=== PATIENT | male | born 1980 | race Caucasian/White ===

== ENCOUNTER 2019-03-21 15:03 | Inpatient (IN) ==
[2019-03-21] MEDS ORDERED: ONDANSETRON INJ 2 MG/ML 2 ML VIAL IV STA (15:11)
[2019-03-21] MEDS ORDERED: KETOROLAC TROMETHAMINE 15 MG/ML VIAL IV STA (15:11)
[2019-03-21] MEDS: SODIUM CHLORIDE 0.9% 1000ML 1,000 ML IV SCH ×2 (15:34→19:35)
[2019-03-21] MEDS ORDERED: DiphenhydrAMINE HCL 50 MG/ML VIAL IV STA (16:01)
[2019-03-21] MEDS ORDERED: METOCLOPRAMIDE HCL INJ 5 MG/ML 2 ML VIAL IV ONE (16:01)
[2019-03-21 16:03] LABS: Alanine Aminotransferase 54 U/L (12-78); Albumin Level 4.7 gm/dl (3.4-5.0); Aspartate Aminotransferase 23 U/L (15-37); Bilirubin Direct 0.1 mg/dl (0-0.2); Blood Urea Nitrogen 18 mg/dl (7-18); Calcium 10.4 mg/dl (8.5-10.1); Carbon Dioxide 32 mmol/L (21-32); Chloride 91 mmol/L (98-107); Est GFR (African American) 74.5; Est GFR (Non-African American) 64.3; Glucose 211 mg/dl (70-99); Potassium 3.8 mmol/L (3.5-5.1); Sodium 135 mmol/L (136-145)
[2019-03-21 16:06] LABS: Alkaline Phosphatase 112 U/L (45-117); Bilirubin,Total 0.5 mg/dl (0.2-1); Total Protein 9.4 gm/dl (6.4-8.2)
[2019-03-21 16:14] LABS: Basophils # (auto) 0.01 K/uL (0-0.2); Immature Granulocytes # (auto) 0.08 K/uL (0.00-0.02); Immature Granulocytes % (auto) 0.4 %; Lymphocytes # (auto) 1.22 K/uL (1.2-3.4); Lymphocytes % (auto) 5.5 %; Mean Corpuscular Hgb Conc 35.4 g/dL (32-36); Mean Corpuscular Volume 87.9 fL (80-100); Mean Platelet Volume 11.9 fL (7.4-10.4); Monocytes # (auto) 0.65 K/uL (0.11-0.59); Monocytes % (auto) 2.9 %; Neutrophils # (auto) 20.39 K/uL (1.4-6.5); Neutrophils % (auto) 91.2 %; Platelet Count 314 K/uL (130-400); RDW Coefficient of Variation 12.7 % (11.5-14.5); RDW Standard Deviation 39.9 fL (36.4-46.3); Red Blood Count 5.46 M/uL (4.7-6.1); White Blood Count 22.35 K/uL (4.8-10.8)
[2019-03-21] MEDS ORDERED: MoRPHine SULFATE 4 MG/ML 1 ML CARP\\VIAL IV STA ×2 (16:15→18:32)
--- NOTE | 2019-03-21 17:09 | CT Scan Report ---
CT SCAN OF THE ABDOMEN AND PELVIS WITHOUT CONTRAST CLINICAL HISTORY: Abdominal pain and vomiting COMPARISON STUDY: 03/20/2019 TECHNIQUE: CT scan of the abdomen and pelvis was performed from the lung bases to the proximal femurs . Images are reviewed in the axial, sagittal, and coronal planes. An attempt was made to perform the study the contrast-enhanced fashion. Approximately 88 cc of Optiray 320 infiltration into the patient 's right antecubital fossa. The attending physician was notified. As the patient has limited IV acces s, it was decided to proceed with these examination without intravenous contrast. A dose lowering te chnique was utilized adhering to the principles of ALARA. CT DOSE: 306.82 mGy.cm FINDINGS: Lower chest: There are right basilar atelectatic changes. Liver: No focal masses are identified in this noncontrast study Gallbladder: There is vicarious excretion of contrast. Spleen: Normal in size and attenuation. Pancreas: Unremarkable. Adrenal glands: Unremarkable. Kidneys: No renal masses are visualized. There is a small amount of contrast enhancement. Bowel: There are progressively dilated small bowel loops with multiple air-fluid levels. The left col on is decompressed. The stomach is distended with large air-fluid level. The cecum appears to be posi tioned within the midline. The findings are concerning for a small bowel obstruction possibly in the basis of a cecal volvulus/bascule Peritoneum: There is a small amount of free pelvic fluid. No free intraperitoneal air is visualized. Vasculature: The abdominal aorta is normal in course and caliber. Adenopathy: None. Pelvic viscera: The bladder, and pelvic viscera are unremarkable. Skeletal structures: No destructive osseous lesions are seen. IMPRESSION: 1. Progressively dilated small bowel loops with multiple air-fluid levels. The transverse and left co anatoly are decompressed. The cecum appears to be positioned within the midline. The findings are consist ent with a small bowel obstruction, possibly on the basis of a cecal volvulus/bascule Electronically signed by: Quentin Albright M.D. 03/21/2019 5:08 PM
[2019-03-21] MEDS ORDERED: SODIUM CHLORIDE 0.9% 1000ML 1,000 ML IV ONE (17:37)
[2019-03-21] MEDS ORDERED: PIPERACILLIN/TAZOBACTAM 4.5 GM/120 ML BAG IV ONE (17:45)
--- NOTE | 2019-03-21 18:12 | Surgery Consultation ---
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 His lactate and WBC are elevated, and the patient's abdomen is difficult to examine. CT scan shows some worsening small bowel dilation. Overall I do not feel that he has an acute abdomen. No emergent surgical intervention indicated at this time Recommend NG tube, IV fluids, admit to medicine Repeat WBC and lactate to trend KUB in the morning Surgery will continue to follow, may need right hemicolectomy during his hospital stay (2) SBO (small bowel obstruction): (3) Heroin abuse: History of Present Illness History of Present Illness 38-year-old male IV drug abuser presents to the emergency department with continued abdominal pain and nausea and vomiting. He presented to the emergency department last night with the symptoms have been going on for about a week. He does endorse a history of chronic constipation due to narcotic use. Yesterday he used heroin prior to coming into the emergency department. He had a CT scan that showed a possible bascule of the cecum. He appeared to be going through withdrawal symptoms and stated his symptoms were improving and left the hospital. He did use heroin again today. He then presented with continued symptoms. He does use multiple enemas and does have a small amount of stool. He vomited multiple times today. He has never had symptoms like this before. Allergies Allergy/AdvReac Type Severity Reaction Status Date / Time No Known Allergies Allergy Verified 03/21/19 16:23 Home Medications Home Medications Medication Instructions Recorded Confirmed Type No Known Home Medications 03/20/19 03/21/19 History Patient History Medical History Depression (Chronic) Cellulitis Heroin use MRSA infection No significant family history No significant past surgical history Social History Preferred Language: Kinyarwanda Feels Safe at Home: Yes Smoking Status: Current every day smoker Review of Systems Review of Systems: All systems reviewed & are unremarkable except as noted in HPI & below Physical Exam Constitutional: + acute distress (Mostly due to withdrawal symptoms, patient is rocking back and forth on the side of the bed) and + cachectic; + not well nourished Eyes: PERRL, conjunctivae normal, anicteric sclerae ENMT: external ear and nose normal, oropharynx normal Neck: trachea midline, no thyromegaly Respiratory: normal respiratory effort, lungs clear to auscultation Cardiovascular: RRR, no murmur, no edema Gastrointestinal (Abdomen): Difficult to examine. Does not appear to have any peritonitis, but would not lay supine for the exam. Musculoskeletal: no cyanosis or clubbing, extremities motor strength 5/5 Skin: no rashes, warm and dry Multiple injection sites on skin Neurologic: PERRL, EOMI, accommodation nl, no face palsy, no dysarthria Psychiatric: A+Ox3, euthymic affect Affect: + anxious affect Lymphatic: no cervical or axillary lymphadenopathy Results & Data Vital Signs (Past 12 Hours) Vital Signs Temp Pulse Pulse Resp BP Pulse Ox 03/21/19 17:02 75 18 155/100 H 98 03/21/19 15:04 36.6 C 107 H 22 98 Laboratory Results Laboratory Results - last 24 hr 03/21/19 03/21/19 03/21/19 15:27 15:27 15:27 WBC 22.35 H RBC 5.46 Hgb 17.0 Hct 48.0 MCV 87.9 MCH 31.1 MCHC 35.4 RDW Std Deviation 39.9 RDW Coeff of Lara 12.7 Plt Count 314 MPV 11.9 H Immature Gran % (Auto) 0.4 Neut % (Auto) 91.2 Lymph % (Auto) 5.5 [place] % (Auto) 2.9 Eos % (Auto) 0.0 Baso % (Auto) 0.0 Immature Gran # (Auto) 0.08 H Neut # (Auto) 20.39 H Lymph # (Auto) 1.22 [place] # (Auto) 0.65 H Eos # (Auto) 0.00 Baso # (Auto) 0.01 Sodium 135 L Potassium 3.8 Chloride 91 L Carbon Dioxide 32 Anion Gap 12.0 H BUN 18 Creatinine 1.39 D Est Cr Clr Drug Dosing Not Reportable Est GFR ( Amer) 74.5 Est GFR (Non-Af Amer) 64.3 BUN/Creatinine Ratio 13.0 Glucose 211 H Lactate 4.9 H* Calcium 10.4 H Magnesium Total Bilirubin 0.5 Direct Bilirubin 0.1 AST 23 ALT 54 Alkaline Phosphatase 112 Total Protein 9.4 H Albumin 4.7 Lipase 129 03/21/19 15:27 WBC RBC Hgb Hct MCV MCH MCHC RDW Std Deviation RDW Coeff of Lara Plt Count MPV Immature Gran % (Auto) Neut % (Auto) Lymph % (Auto) [place] % (Auto) Eos % (Auto) Baso % (Auto) Immature Gran # (Auto) Neut # (Auto) Lymph # (Auto) [place] # (Auto) Eos # (Auto) Baso # (Auto) Sodium Potassium Chloride Carbon Dioxide Anion Gap BUN Creatinine Est Cr Clr Drug Dosing Est GFR ( Amer) Est GFR (Non-Af Amer) BUN/Creatinine Ratio Glucose Lactate Calcium Magnesium 2.5 H Total Bilirubin Direct Bilirubin AST ALT Alkaline Phosphatase Total Protein Albumin Lipase Diagnostic Findings CT SCAN OF THE ABDOMEN AND PELVIS WITHOUT CONTRAST CLINICAL HISTORY: Abdominal pain and vomiting COMPARISON STUDY: 03/20/2019 TECHNIQUE: CT scan of the abdomen and pelvis was performed from the lung bases to the proximal femurs. Images are reviewed in the axial, sagittal, and coronal planes. An attempt was made to perform the study the contrast-enhanced fashion. Approximately 88 cc of Optiray 320 infiltration into the patient's right antecubital fossa. The attending physician was notified. As the patient has limited IV access, it was decided to proceed with these examination without intravenous contrast. A dose lowering technique was utilized adhering to the principles of ALARA. CT DOSE: 306.82 mGy.cm FINDINGS: Lower chest: There are right basilar atelectatic changes. Liver: No focal masses are identified in this noncontrast study Gallbladder: There is vicarious excretion of contrast. Spleen: Normal in size and attenuation. Pancreas: Unremarkable. Adrenal glands: Unremarkable. Kidneys: No renal masses are visualized. There is a small amount of contrast enhancement. Bowel: There are progressively dilated small bowel loops with multiple air-fluid levels. The left colon is decompressed. The stomach is distended with large air- fluid level. The cecum appears to be positioned within the midline. The findings are concerning for a small bowel obstruction possibly in the basis of a cecal volvulus/bascule Peritoneum: There is a small amount of free pelvic fluid. No free intraperitoneal air is visualized. Vasculature: The abdominal aorta is normal in course and caliber. Adenopathy: None. Pelvic viscera: The bladder, and pelvic viscera are unremarkable. Skeletal structures: No destructive osseous lesions are seen. IMPRESSION: 1. Progressively dilated small bowel loops with multiple air-fluid levels. The transverse and left colon are decompressed. The cecum appears to be positioned within the midline. The findings are consistent with a small bowel obstruction, possibly on the basis of a cecal volvulus/bascule
--- NOTE | 2019-03-21 18:22 | History & Physical Report ---
Date of Service March 21, 2019 Assessment & Plan (1) Cecal bascule: (2) SBO (small bowel obstruction): This is a 38 yo M with PMH heroin abuse and depression who presents with progressive diffuse abdominal pain that began 1 week ago and was found to have small bowel obstruction and possible cecal volvulus/bascule. -Worsening abdominal pain x 1 week -CT abd/pelvis with progressively dilated small bowel loops with multiple air- fluid levels. The transverse and left colon are decompressed. The cecum appears to be positioned within the midline. The findings are consistent with a small bowel obstruction, possibly on the basis of a cecal volvulus/bascule -Evaluated by Dr. Sawant of general surgery. Does not feel this is an acute abdomen and no emergent surgical intervention is needed at this time -Will conservatively manage with NG tube, IV fluids, pain control, trend WBC and lactate -Surgery to follow -Keeping NPO (3) Heroin abuse: Last used this morning -Clonidine PRN, Ativan PRN DVT Ppx: Tristen talbert, ambulation Code status: FULL PCP: Unassigned Dispo: Admitted to PCU. Plan to return home once medically stable. Patient seen in collaboration with Dr. [place]. Please see addendum. History of Present Illness Chief Complaint: RLQ abdominal pain Primary Care Provider: NO PCP This is a 38 yo M with PMH heroin abuse and depression who presents with progressive diffuse abdominal pain that began 1 week ago. States that he has not had a normal bowel movement in about a week but has passed small amounts of stool. Has history of constipation in setting of heroin use. Was evaluated yesterday in the ED for RLQ pain and had CT abd/pelvis that showed distended cecum located in left upper quadrant due to possible mobile cecal syndrome or cecal bascule/volvulus. No evidence of appendicitis. Patient had no correlating pain in that area and was discharged home. Returns this afternoon with more diffuse abdominal pain, nausea and multiple bouts of emesis. Last used heroin this morning. Did not have a bowel movement despite taking 4 laxatives prior to arrival. Patient states that he feels antsy and is starting to withdrawal. Denies fever, chills, headache, lightheadedness, chest pain, palpitations, shortness of breath, dysuria or diarrhea. In ED, patient is hypertensive at 155/100. Leukocytosis of 22.35k. Lactate elevated at 4.9. CT abd/pelvis today with progressively dilated small bowel loops with multiple air-fluid levels. The transverse and left colon are decompressed. The cecum appears to be positioned within the midline. The findings are consistent with a small bowel obstruction, possibly on the basis of a cecal volvulus/bascule. Was evaluated by surgical service in ED. Dr. Sawant does not feel this is an acute abdomen and no emergent surgical intervention is needed at this time. Will conservatively manage with NG tube, IV fluids, trend WBC and lactate. 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 Physical Exam Physical Exam: General Appearance: WD/WN, thin male in acute distress moving around in bed, rocking back and forth Head: normocephalic, atraumatic Eyes: normal inspection, constricted pupils, EOMI ENT: hearing grossly normal, pharynx normal (dry mucous membranes) Neck: supple, no JVD, no adenopathy Respiratory/Chest: lungs clear to auscultation. No wheezes, rales or rhonci. No respiratory distress or accessory muscle use Cardiovascular: regular rate, rhythm, no murmur, normal peripheral pulses Abdomen/GI: difficult to examine due to patient moving around. Mildly distended, diffusely tender to palpation, no guarding Extremities/Musculoskelatal: normal inspection, no calf tenderness, normal capillary refill, no pedal edema Neurologic/Psych: alert, anxious mood, oriented x 3 Skin: normal color, warm/dry Results & Data Vital Signs (Past 12 Hours) Vital Signs Temp Pulse Pulse Resp BP Pulse Ox 03/21/19 17:02 75 18 155/100 H 98 03/21/19 15:04 36.6 C 107 H 22 98 Laboratory Results Short CBC 03/21/19 Range/Units 15:27 WBC 22.35 H (4.8-10.8) K/uL Hgb 17.0 (14.0-18.0) g/dL Hct 48.0 (42-52) % Plt Count 314 (130-400) K/uL BMP 03/21/19 15:27 Sodium 135 L Potassium 3.8 Chloride 91 L Carbon Dioxide 32 BUN 18 Creatinine 1.39 D Glucose 211 H Calcium 10.4 H Lactate 4.9 H Liver Function 03/21/19 Range/Units 15:27 Total Bilirubin 0.5 (0.2-1) mg/dl Direct Bilirubin 0.1 (0-0.2) mg/dl AST 23 (15-37) U/L ALT 54 (12-78) U/L Alkaline Phosphatase 112 (45-117) U/L Albumin 4.7 (3.4-5.0) gm/dl Diagnostic Findings CT abd/pelvis: IMPRESSION: 1. Progressively dilated small bowel loops with multiple air-fluid levels. The transverse and left colon are decompressed. The cecum appears to be positioned within the midline. The findings are consistent with a small bowel obstruction, possibly on the basis of a cecal volvulus/bascule Supervising Physician Co-Signing Physician Notes I saw this patient with the physician assistant mechanic, I participated in the history, physical, review of systems, and physical exam. I reviewed the medications with the patient and the physician assistant mechanic and helped reconcile the medications. I helped take a detailed family and social history as well. I formulated the assessment and plan personally with the physician assistant mechanic and went over it with the patient. ROS-No Headache, No Visual Changes, No Nausea, No Vomiting, + Fever, + Chills, No Neck Pain or Stiffness, No Chest Pain, No Palpitations, No SOB, No CHI, No Cough, No Sputum, No Wheezing, + Abdominal Pain, No Diarrhea, No Hematemesis, No Hemoptysis, No Unexpected Weight Loss, No Flank pain, No Melena, No Hematochezia, No Frequency, No Urgency, No Burning, No Hematuria, No Rashes, No Diaphoresis. Appetite is Normal Physical Exam Gen-AAO x 3, NAD, Afebrile, anxious, diaphoretic Head-NCAT, EOMI, PERRLA, Anicteric Sclera, No Posterior Pharyngeal Erythema Neck-Supple, No JVD, No Thyromegaly, No Masses, No LAD, No Bruits Lungs-Clear to Auscultation Bilaterally, No Rales, No Rhonchi, No Wheezing, No Crepitus Chest-No S4, +S1, +S2, No S3, No Murmurs, No Rubs, No Gallops, No Ectopy Abdomen-Soft, Bowel Sounds Present, Tender, Non Distended, No Hepatomegaly, No Splenomegaly, No Palpable Masses, No Rebound, No Rigidity, + Guarding Musculoskeletal-Full Range of Motion Bilaterally, No CVAT Extremities-No Cyanosis, No Clubbing, No Edema Nuero-Cranial Nerves II-XII grossly intact, Motor WNL, DTRs WNL, Strength WNL, Non Focal Psych-Normal Mood
[2019-03-21] MEDS ORDERED: MoRPHine SULFATE 4 MG/ML 1 ML CARP\\VIAL IV PRN (19:28)
[2019-03-21] MEDS ORDERED: CONSULT PHARMACY STA (19:28)
[2019-03-21] MEDS ORDERED: ONDANSETRON INJ 2 MG/ML 2 ML VIAL IV PRN (19:28)
[2019-03-21] MEDS ORDERED: LORazepam 0.5 MG/1 ML VIAL IV PRN (19:28)
[2019-03-21] MEDS ORDERED: PIPERACILL/TAZOBAC CONSULT ACTIVE PRN (19:42)
[2019-03-21] MEDS ORDERED: PATIENT'S HEIGHT AND/OR WEIGHT NEEDED SCH (19:45)
[2019-03-21] MEDS ORDERED: HYDROmorphone INJ 1 MG/ML SYRINGE IV PRN (19:55)
[2019-03-21] MEDS: LORazepam 2 MG/4 ML VIAL IV PRN (20:06)
--- NOTE | 2019-03-21 20:31 | Emergency Department Note ---
Entered by Yuli Diaz acting as a scribe for History of Present Illness General Chief complaint: Vomiting Stated complaint: VOMITTING Time Seen by Provider: 03/21/19 15:08 Source: patient Limitations: no limitations History of Present Illness Provider complaint: Vomiting Onset (ago): hour(s) Location: mouth Maximum Pain Intensity: 10 Relieved By: + none Associated symptoms: + denies other symptoms (-blood in vomit, -black tarry vomit ), + nausea/vomiting and + other (+constipation ) Treatments prior to arrival: other (+4 edemas ) The patient is a 38 year old male who presents to the Emergency Room with complaints of vomiting that began earlier in the morning prior to arrival. The patient states that he had at least 40 episodes prior to arrival. The patient states that his vomit is a light green color. The patient denies any of his vomit being dark/tarry or containing blood. The patient states that he has taken 4 edemas since he was discharged from the ED the night prior to arrival but states that he has not been able to have a bowel movement and is still constipated. The patient states that only blood came out of his rectum. Home Medications Home Medications Medication Instructions Recorded Confirmed Type No Known Home Medications 03/20/19 03/21/19 History Allergies Allergy/AdvReac Type Severity Reaction Status Date / Time No Known Allergies Allergy Verified 03/21/19 16:23 Past Med/Surg History Medical History Heroin abuse (Chronic) Depression (Chronic) MRSA infection (Resolved) Surgical History No significant past surgical history (Chronic) Family History Other No pertinent family history Social History Preferred Language: Kinyarwanda Communication Ability: Effective Table Assembler Required: No Beliefs That Will Affect Care: None Current Living Situation: Alone Feels Safe at Home: Yes Safety Concerns: Feels Safe At This Time Smoking Status: Current every day smoker Tobacco Type: cigarettes Cigarettes Per Day: 20 Hx Alcohol Use: No Hx Substance Use: Yes substance use type: heroin Last Used Substance: Days (ago) Last Used Substance Other:: 03/22/19 Review of Systems See HPI for pertinent positives & negatives. and A total of 10 systems reviewed and were otherwise negative Physical Exam Vital Signs Vital Signs - 24 hr 03/21/19 15:04 07/24/19 17:02 Temperature 36.6 C Temperature Source Oral Sepsis Recent Fever Within 48 Hours No Sepsis New/Unexplained Change in Mental Status No Sepsis Action Taken by Nursing No Action Required Pulse Rate 107 H Pulse Rate [Apical] 75 Pulse Rhythm Regular Pulse Strength Normal Respiratory Rate 22 18 Respiratory Effort / Characteristics Non-Labored Spontaneous Respiratory Depth Normal Respiratory Pattern Regular Blood Pressure [Left Arm] 155/100 H Blood Pressure Mean [Left Arm] 118 Blood Pressure Position Sitting Pulse Oximetry 98 98 Oxygen Delivery Method Room Air Physical Exam GENERAL: He is oriented to person, place, and time. He appears well-developed and well-nourished. He does not appear distressed. HENT: Exam performed. - Head: Normocephalic and atraumatic. - Right Ear: External ear normal. No mastoid tenderness. - Left Ear: External ear normal. No mastoid tenderness. - Mouth/Throat: The oropharynx is clear and moist. No trismus in the jaw. No dental abscesses or uvula swelling. No oropharyngeal exudate or tonsillar abscesses. EYES: Conjunctivae and EOM are normal. Pupils are equal, round, and reactive to light. Right eye exhibits no discharge. Left eye exhibits no discharge. No scleral icterus. NECK: Normal range of motion. Neck supple. No JVD present. No spinous process tenderness present. No carotid bruit present. No rigidity. No tracheal deviation and normal range of motion present. No Brudzinski's sign and no Kernig's sign noted. CV: Normal rate, regular rhythm, normal heart sounds and intact distal pulses. There is no peripheral edema. Palpable radial pulses bue. PULM/CHEST: Effort normal and breath sounds normal. No respiratory distress. No stridor. He has no wheezes. He has no rales. - Chest Wall: He exhibits no tenderness. ABD: The abdomen is soft. Bowel sounds are normal. He has no distension. No mass is present. There is abdominal tenderness with palpitation. There is no rebound, no guarding, no Askew's sign and no tenderness at McBurney's point. Rovsig negative. MUSC/SKEL: Normal range of motion. There is no peripheral edema, tenderness or deformity. LYMPH: No cervical adenopathy. NEURO: He is alert and oriented to person, place, and time. He has normal strength. No cranial nerve deficit or sensory deficit. Coordination and gait normal. GCS eye subscore is 4. GCS verbal subscore is 5. GCS motor subscore is 6. cerbellar tests wnl. SKIN: Skin is warm and dry. He is not diaphoretic. Multiple track murphy on his arms PSYCH: He has a normal mood and affect. His behavior is normal. Judgment and thought content normal. Course 1519: The patient was evaluated in room B10, and a complete history and physical examination were performed. Last night in the emergency department at that time he had a minimal leukocytosis of 13 and right-sided lower abdominal pain. CT was negative for appendicitis. CT did make mention of a possible cecal volvulus versus mobile cecum syndrome, will repeat labs and obtain CT to rule out volvulus/obstruction. 1616: I checked on and updated the patient on their results. The patient's vital signs are stable. The patient states that he feels better after receiving Benadryl and Reglan. The patient has an elevated lactic acid of 4.9. The patient also has an elevated WBC of 22, which is elevated from his WBC of 13 taken yesterday in the ED. The patient's creatine is within normal limits. A repeat CT will be done to see if the patient has an obstruction or volvulus. 1620: I discussed the patient's case with Josr HOROWITZ, [facility] General Surgery who states that he will be down to evaluate the patient after the CT is done. 1717: I discussed the patient's case with Dr. Sawant- [facility] General Surgery who states that he is going to come evaluate the patient but recommends that the patient be admitted at this time to hospital services. Dr. Sawant also recommends that a tube be placed in the patient. 1735: Vital signs stable. Patient not vomiting after receiving morphine and antiemetics in the emergency department. CT of the abdomen showed small bowel obstruction. I discussed the patient's case with Rocio Dempsey- [facility] Hospitalist who will admit the patient to Dr. Celestine Cuba- [facility] [employer]. I discussed the patient's elevated lactic acid level with Rocio Dempsey and she stated that she does not think the elevation is due to sepsis. She states that she will be down to evaluate the patient and then let me know if she wants the patient to be admitted to ICU. 1740: [facility] who states that he evaluated the patient at bedside and states that no surgical intervention needs to be done at this time. 1445: I discussed the patient's [facility] [employer] [employer] who states that the patient's blood pressure is stable and does not think that the patient needs admitted to ICU. He recommends the patient be given antibiotics, the patient will be given IV zozsyn. He also states that he will be down to evaluate the patient. Consultations Consultation #1: Josr HOROWITZ, [facility] General Surgery Time: 16:20 Consultation #2: Dr. Dahl [facility] General Surgery Time: 17:17 Consultation #3[facility] [employer] Time: 17:35 Additional Consultation(s): 1740:[facility] who states 1445: [facility] [employer] Administered Medications Sodium Chloride (Nss 1000ml) 1,000 mls @ 125 mls/hr IV .Q8H FAY Stop: 04/20/19 15:14 Last Admin: 03/21/19 19:35 Dose: 125 mls/hr Documented by: [id number] Infusion: 03/21/19 19:35 Dose: 125 mls/hr Documented by: [id number] Admin: 03/21/19 15:34 Dose: 125 mls/hr Documented by: [id number] Piperacillin Sod/Tazobactam Sod (Zosyn) 4.5 gm in 120 mls @ 30 mls/hr IV NOW ONE Stop: 03/21/19 21:44 Last Admin: 03/21/19 18:37 Dose: 30 mls/hr Documented by: [id number] Lorazepam (Ativan) 2 mg in 4 mls @ 4 mls/min IV Q2H PRN PRN Reason: Anxiety/Agitation Stop: 04/20/19 19:53 Last Admin: 03/21/19 20:06 Dose: 4 mls/min Documented by: [id number] Discontinued Medications Diphenhydramine HCl (Benadryl) 25 mg IV NOW STA Stop: 03/21/19 16:02 Last Admin: 03/21/19 16:05 Dose: 25 mg Documented by: [id number] Sodium Chloride (Nss 1000ml) 1,000 mls @ 999 mls/hr IV .Q1H1M ONE Stop: 03/21/19 18:37 Last Admin: 03/21/19 18:37 Dose: 999 mls/hr Documented by: [id number] Ketorolac Tromethamine (Toradol) 15 mg IV NOW STA Stop: 03/21/19 15:12 Last Admin: 03/21/19 15:34 Dose: 15 mg Documented by: [id number] Metoclopramide HCl (Reglan) 5 mg IV ONE ONE Stop: 03/21/19 16:02 Last Admin: 03/21/19 16:05 Dose: 5 mg Documented by: [id number] Morphine Sulfate (Morphine Sulfate) 4 mg IV NOW STA Stop: 03/21/19 16:16 Last Admin: 03/21/19 17:00 Dose: 4 mg Documented by: [id number] Morphine Sulfate (Morphine Sulfate) 4 mg IV NOW STA Stop: 03/21/19 18:33 Last Admin: 03/21/19 18:37 Dose: 4 mg Documented by: [id number] Ondansetron HCl (Zofran) 4 mg IV NOW STA Stop: 03/21/19 15:12 Last Admin: 03/21/19 15:34 Dose: 4 mg Documented by: [id number] Medical Decision Making Differential Diagnosis Differential diagnosis includes: Medical Records Attestation: I reviewed the patient's medical records. Home Medications Current Medication List: was personally reviewed by me Laboratory Data Attestation: I reviewed the patient's lab results. Result diagrams: 03/21/19 15:27 03/21/19 15:27 Lab Results 03/21/19 03/21/19 03/21/19 Range/Units 15:27 15:27 15:27 WBC 22.35 H (4.8-10.8) K/uL RBC 5.46 (4.7-6.1) M/uL Hgb 17.0 (14.0-18.0) g/dL Hct 48.0 (42-52) % MCV 87.9 (80-100) fL MCH 31.1 (25-34) pg MCHC 35.4 (32-36) g/dL RDW Std Deviation 39.9 (36.4-46.3) fL RDW Coeff of Lara 12.7 (11.5-14.5) % Plt Count 314 (130-400) K/uL MPV 11.9 H (7.4-10.4) fL Immature Gran % (Auto) 0.4 % Neut % (Auto) 91.2 % Lymph % (Auto) 5.5 % Tama % (Auto) 2.9 % Eos % (Auto) 0.0 % Baso % (Auto) 0.0 % Immature Gran # (Auto) 0.08 H (0.00-0.02) K/uL Neut # (Auto) 20.39 H (1.4-6.5) K/uL Lymph # (Auto) 1.22 (1.2-3.4) K/uL Tama # (Auto) 0.65 H (0.11-0.59) K/uL Eos # (Auto) 0.00 (0-0.5) K/uL Baso # (Auto) 0.01 (0-0.2) K/uL Sodium 135 L (136-145) mmol/L Potassium 3.8 (3.5-5.1) mmol/L Chloride 91 L (98-107) mmol/L Carbon Dioxide 32 (21-32) mmol/L Anion Gap 12.0 H (3-11) BUN 18 (7-18) mg/dl Creatinine 1.39 D (0.6-1.4) mg/dl Est Cr Clr Drug Dosing Not Reportable Est GFR ( Amer) 74.5 Est GFR (Non-Af Amer) 64.3 BUN/Creatinine Ratio 13.0 (10-20) Glucose 211 H (70-99) mg/dl Lactate 4.9 H* (0.4-2.0) mmol/L Calcium 10.4 H (8.5-10.1) mg/dl Magnesium (1.8-2.4) mg/dl Total Bilirubin 0.5 (0.2-1) mg/dl Direct Bilirubin 0.1 (0-0.2) mg/dl AST 23 (15-37) U/L ALT 54 (12-78) U/L Alkaline Phosphatase 112 (45-117) U/L Total Protein 9.4 H (6.4-8.2) gm/dl Albumin 4.7 (3.4-5.0) gm/dl Lipase 129 (73-393) U/L 03/21/19 Range/Units 15:27 WBC (4.8-10.8) K/uL RBC (4.7-6.1) M/uL Hgb (14.0-18.0) g/dL Hct (42-52) % MCV (80-100) fL MCH (25-34) pg MCHC (32-36) g/dL RDW Std Deviation (36.4-46.3) fL RDW Coeff of Lara (11.5-14.5) % Plt Count (130-400) K/uL MPV (7.4-10.4) fL Immature Gran % (Auto) % Neut % (Auto) % Lymph % (Auto) % Tama % (Auto) % Eos % (Auto) % Baso % (Auto) % Immature Gran # (Auto) (0.00-0.02) K/uL Neut # (Auto) (1.4-6.5) K/uL Lymph # (Auto) (1.2-3.4) K/uL Tama # (Auto) (0.11-0.59) K/uL Eos # (Auto) (0-0.5) K/uL Baso # (Auto) (0-0.2) K/uL Sodium (136-145) mmol/L Potassium (3.5-5.1) mmol/L Chloride (98-107) mmol/L Carbon Dioxide (21-32) mmol/L Anion Gap (3-11) BUN (7-18) mg/dl Creatinine (0.6-1.4) mg/dl Est Cr Clr Drug Dosing Est GFR ( Amer) Est GFR (Non-Af Amer) BUN/Creatinine Ratio (10-20) Glucose (70-99) mg/dl Lactate (0.4-2.0) mmol/L Calcium (8.5-10.1) mg/dl Magnesium 2.5 H (1.8-2.4) mg/dl Total Bilirubin (0.2-1) mg/dl Direct Bilirubin (0-0.2) mg/dl AST (15-37) U/L ALT (12-78) U/L Alkaline Phosphatase (45-117) U/L Total Protein (6.4-8.2) gm/dl Albumin (3.4-5.0) gm/dl Lipase (73-393) U/L Imaging Data Radiologist's Impression: Radiology results as stated below per my review and the radiologist's interpretation: CT SCAN OF THE ABDOMEN AND PELVIS WITHOUT CONTRAST CLINICAL HISTORY: Abdominal pain and vomiting COMPARISON STUDY: 03/20/2019 TECHNIQUE: CT scan of the abdomen and pelvis was performed from the lung bases to the proximal femurs. Images are reviewed in the axial, sagittal, and coronal planes. An attempt was made to perform the study the contrast-enhanced fashion. Approximately 88 cc of Optiray 320 infiltration into the patient's right antecubital fossa. The attending physician was notified. As the patient has limited IV access, it was decided to proceed with these examination without intravenous contrast. A dose lowering technique was utilized adhering to the principles of ALARA. CT DOSE: 306.82 mGy.cm FINDINGS: Lower chest: There are right basilar atelectatic changes. Liver: No focal masses are identified in this noncontrast study Gallbladder: There is vicarious excretion of contrast. Spleen: Normal in size and attenuation. Pancreas: Unremarkable. Adrenal glands: Unremarkable. Kidneys: No renal masses are visualized. There is a small amount of contrast enhancement. Bowel: There are progressively dilated small bowel loops with multiple air-fluid levels. The left colon is decompressed. The stomach is distended with large air- fluid level. The cecum appears to be positioned within the midline. The findings are concerning for a small bowel obstruction possibly in the basis of a cecal volvulus/bascule Peritoneum: There is a small amount of free pelvic fluid. No free intraperitoneal air is visualized. Vasculature: The abdominal aorta is normal in course and caliber. Adenopathy: None. Pelvic viscera: The bladder, and pelvic viscera are unremarkable. Skeletal structures: No destructive osseous lesions are seen. IMPRESSION: 1. Progressively dilated small bowel loops with multiple air-fluid levels. The transverse and left colon are decompressed. The cecum appears to be positioned within the midline. The findings are consistent with a small bowel obstruction, possibly on the basis of a cecal volvulus/bascule Electronically signed by: Quentin Albright M.D. 03/21/2019 5:08 PM Blood Pressure Blood Pressure Findings: Elevated blood pressure Blood Pressure Disposition: did not require urgent referral MDM Narrative 1519: The patient was evaluated in room B10, and a complete history and physical examination were performed. Last night in the emergency department at that time he had a minimal leukocytosis of 13 and right-sided lower abdominal pain. CT was negative for appendicitis. CT did make mention of a possible cecal volvulus versus mobile cecum syndrome, will repeat labs and obtain CT to rule out volvu jimenez/obstruction. 1616: I checked on and updated the patient on their results. The patient's vital signs are stable. The patient states that he feels better after receiving Benadryl and Reglan. The patient has an elevated lactic acid of 4.9. The patient also has an elevated WBC of 22, which is elevated from his WBC of 13 taken yesterday in the ED. The patient's creatine is within normal limits. A repeat CT will be done to see if the patient has an obstruction or volvulus. 1620: I discussed the patient's case with Josr HOROWITZ, [facility] General Surgery who states that he will be down to evaluate the patient after the CT is done. 1717: I discussed the patient's case with Dr. Sawant- [facility] Surgery who states that he is going to come evaluate the patient but recommends that the patient be admitted at this time to hospital services. Dr. Sawant also recommends that a tube be placed in the patient. 1735: Vital signs stable. Patient not vomiting after receiving morphine and antiemetics in the emergency department. CT of the abdomen showed small bowel obstruction. I discussed the patient's case with Rocio Dempsey- [facility] Hospitalist who will admit the patient to Dr. Celestine Cuba- [facility] [employer]. I discussed the patient's elevated lactic acid level with Rocio Dempsey and she stated that she does not think the elevation is due to sepsis. She states that she will be down to evaluate the patient and then let me know if she wants the patient to be admitted to ICU. 1740: I discussed the patient's case with Dr. Sawant- [facility] General Surgery who states that he evaluated the patient at bedside and states that no surgical intervention needs to be done at this time. 1445: I discussed the patient's case with Dr. Celestine Cuba- [facility] [employer] who states that the patient's blood pressure is stable and does not think that the patient needs admitted to ICU. He recommends the patient be given antibiotics, the patient will be given IV zozsyn. He also states that he will be down to evaluate the patient. Impression & Plan SBO (small bowel obstruction) Discharge Plan Visit Data *Final* Discharge Date/Time: 03/21/19 18:49 Chief Complaint: Vomiting Stated Complaint: VOMITTING ED Provider: Henry Nicholas Discharge Problem: SBO (small bowel obstruction) Patient Disposition: Admitted As Inpatient Discharge Instructions Interventions: ED Discharge Assessment Last Done: 03/21/19 18:49 The scribe's documentation has been prepared under my direction and personally reviewed by me in its entirety. I confirm that the note above accurately reflects all work, treatment, procedures, and medical decision making performed by me.
[2019-03-21] MEDS ORDERED: MoRPHine SULFATE 4 MG/ML 1 ML CARP\\VIAL IM PRN (21:26)
[2019-03-21] MEDS ORDERED: DIAZEPAM 5 MG/ML INJ 10ML VIAL IM PRN (21:26)
[2019-03-21] MEDS ORDERED: ONDANSETRON 4 MG OD TAB PO PRN (21:29)
[2019-03-21] MEDS: cloNIDine HCl 0.1 MG TAB PO SCH (23:02)
[2019-03-22] MEDS: PIPERACILLIN/TAZOBACTAM 3.375 GM in DEXTROSE 5% 100 ML IV SCH ×3 (01:30→18:27)
[2019-03-22] MEDS: cloNIDine HCl 0.1 MG TAB PO SCH ×3 (05:27→20:30)
[2019-03-22 05:47] LABS: Hematocrit (blood only) 46.8 % (42-52); Hemoglobin 16.3 g/dL (14.0-18.0); Mean Corpuscular Hgb Conc 34.8 g/dL (32-36); Mean Corpuscular Volume 88.6 fL (80-100); Mean Platelet Volume 11.9 fL (7.4-10.4); Platelet Count 281 K/uL (130-400); RDW Coefficient of Variation 12.8 % (11.5-14.5); RDW Standard Deviation 40.8 fL (36.4-46.3); Red Blood Count 5.28 M/uL (4.7-6.1); White Blood Count 13.73 K/uL (4.8-10.8)
[2019-03-22 06:16] LABS: BUN Creatinine Ratio 25.2 (10-20); Calcium 9.1 mg/dl (8.5-10.1); Creatinine Clr Calc Pharmacy 95.7 ml/min; Est GFR (African American) 91.8; Est GFR (Non-African American) 79.2; Potassium 4.1 mmol/L (3.5-5.1)
[2019-03-22] MEDS: SODIUM CHLORIDE 0.9% 1000ML 1,000 ML IV SCH ×2 (08:43→18:27)
[2019-03-22] MEDS: LORazepam 2 MG/4 ML VIAL IV PRN (08:44)
[2019-03-22] MEDS ORDERED: DIAZEPAM 5 MG/ML INJ 10ML VIAL IV PRN (08:50)
[2019-03-22] MEDS ORDERED: LORazepam 1 MG/2 ML VIAL IV PRN (09:03)
--- NOTE | 2019-03-22 09:09 | XRay Report ---
KUB HISTORY: Acute generalized abdominal pain with small bowel obstruction sbo/cecal bascule COMPARISON: CT abdomen and pelvis 03/21/2019 FINDINGS: No pneumatosis or pneumoperitoneum identified. Contrast noted within the urinary bladder lumen. Moder ate volume of formed stool noted within portions of the large bowel. Mild gaseous distention of the c ecum within the central abdomen and ascending colon. Dilated loops of air-filled small bowel redemons trated measuring up to 3.7 cm transversely. Degree of large and small bowel distention appears mildly improved from comparison. Lung bases appear clear. No urolith or acute fracture. IMPRESSION: 1. Mildly decreased yet persistent dilated cecum and small bowel suggest ongoing obstruction. 2. No pneumatosis or pneumoperitoneum. Electronically signed by: Naveen Lewis M.D. 03/22/2019 9:07 AM
[2019-03-22] MEDS: MoRPHine SULFATE 4 MG/ML 1 ML CARP\\VIAL IV PRN ×2 (12:07→19:20)
[2019-03-22] MEDS: LORazepam 1 MG/2 ML VIAL IV PRN ×2 (12:12→20:32)
--- NOTE | 2019-03-22 13:18 | Surgery Progress Note ---
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 not likely to improve and almost for sure would recur near future states no family/POA we can call we discussed his options and risks ( bleeding/infection/leaks/dvt/pe/mi/cva/injury to another organ etc...) questions answered. He would like to proceed with open right hemicolectomy. will do today ( cannot prep b/c of bowel obstruction). (2) SBO (small bowel obstruction): Subjective pt's primary c/o today is "heroin withdrawal". still having abdominal pain but improved from yesterday. no bm. +nausea. Physical Exam Physical Exam: awake but not very interactive. seems to understand but frequently nods off. appears uncomfortable. fidgety. Heart: RRR Lungs: CTA b/l abd: soft. mild distension. +right sided tenderness. ext: no c/c/e Results & Data Vital Signs (Past 12 Hours) Vital Signs Temp Pulse Resp BP Pulse Ox 03/22/19 11:49 37.0 C 97 H 17 135/88 93 03/22/19 07:37 36.9 C 91 H 20 131/84 95 03/22/19 03:25 37.0 C 97 H 16 147/105 H 93
[2019-03-22] MEDS ORDERED: BUPIVACAINE 0.5 % 5 MG/1 ML PF 10ML VIAL ONE (14:03)
[2019-03-22] MEDS ORDERED: BUPIVACAINE 0.25% 30 ML VIAL ONE (14:06)
--- NOTE | 2019-03-22 14:06 | Anesthesiology Consultation ---
Date of Service March 22, 2019 Assessment & Plan (1) Encounter for pre-operative examination: Chart Review Chart Review: Acceptable Risk for Surgery History Surgery Operation Date: 03/22/19 13:20 Proposed Procedures p Right Open Hemicolectomy - Nick Alaniz DO Height/Weight Height: 6 ft 4 in Weight: 78.3 kg Allergies Allergy/AdvReac Type Severity Reaction Status Date / Time No Known Allergies Allergy Verified 03/21/19 16:23 Medications Home Medications Medication Instructions Recorded Confirmed Last Taken No Known Home Medications 03/20/19 03/21/19 Unknown Active Medications Generic Name Dose Route Start Last Admin Trade Name Freq PRN Reason Stop Dose Admin Clonidine HCl 0.1 mg 03/21/19 20:00 03/22/19 12:07 Catapres PO 04/20/19 19:59 0.1 mg Q8H FAY Administration Hydromorphone HCl 1 mg 03/21/19 19:55 03/22/19 08:44 Dilaudid IV 04/04/19 19:54 1 mg Q4H PRN Administration Pain Sodium Chloride 1,000 mls @ 125 mls/hr 03/21/19 15:15 03/22/19 13:28 Nss 1000ml IV 04/20/19 15:14 0 mls/hr .Q8H FAY Infusion Piperacillin Sod/Tazobactam 115 mls @ 28.75 mls/hr 03/22/19 02:00 03/22/19 13:09 Sod 3.375 gm/ Dextrose IV 04/01/19 01:59 Infused Q8H FAY Infusion Protocol Lorazepam 1 mg in 2 mls @ 2 mls/min 03/22/19 09:36 03/22/19 12:12 Ativan IV 04/21/19 09:35 2 mls/min Q3H PRN Administration Anxiety/Agitation Morphine Sulfate 4 mg 03/22/19 08:50 03/22/19 12:07 Morphine Sulfate IV 04/04/19 21:25 4 mg Q3H PRN Administration Pain Ondansetron HCl 4 mg 03/21/19 19:28 03/22/19 08:43 Zofran IV 04/20/19 19:27 4 mg Q6H PRN Administration Nausea NPO Date Last Intake of Fluids: 03/21/19 Time Last Intake of Fluids: 12:00 Date Last Intake of Solids: 03/21/19 Time Last Intake of Solids: 20:00 Past Medical History Medical History Heroin abuse (Chronic) Depression (Chronic) MRSA infection (Resolved) Past Family History Family History Other No pertinent family history Past Surgical History Surgical History No significant past surgical history (Chronic) Social History Smoking Status: Current every day smoker tobacco type: cigarettes Smoking cigarettes per day: 20 Hx Alcohol Use: No Hx Substance Use: Yes substance use type: heroin Last Used Substance: Days (ago) Last Used Substance Other:: 03/22/19 Physical Exam Vital Signs Last Vital Signs Temp 37.4 C 03/22/19 13:40 Pulse 99 H 03/22/19 13:40 Resp 20 03/22/19 13:40 BP 127/83 03/22/19 13:40 Pulse Ox 96 03/22/19 13:40 Testing Laboratory Results 03/22/19 05:33 03/22/19 05:33 Chest X-Ray Date: 03/20/19 Findings: + NAD
[2019-03-22] MEDS ORDERED: fentaNYL citrate 100 MCG/2 ML VIAL ONE ×2 (14:13)
[2019-03-22] MEDS ORDERED: MIDAZOLAM HCL 1 MG/ML 2ML VIAL ONE (14:13)
[2019-03-22] MEDS ORDERED: SUCCINYLCHOLINE CHLORIDE 20 MG/ML 10 ML VIAL ONE (14:13)
[2019-03-22] MEDS ORDERED: DexMEDEtomidine HCL IV 100 MCG/ML VIAL ONE (14:13)
[2019-03-22] MEDS ORDERED: LIDOCAINE HCL 2% 2 ML VIAL/AMP(20MG/ML) INFIL ONE (14:13)
[2019-03-22] MEDS ORDERED: PROPOFOL IV EMULSION 10 MG/ML 20 ML VIAL IV ONE (14:13)
[2019-03-22] MEDS ORDERED: ROCURONIUM BROMIDE 10 MG/ML 5 ML VIAL ONE (14:13)
[2019-03-22] MEDS ORDERED: ONDANSETRON INJ 2 MG/ML 2 ML VIAL IV PRN (14:14)
[2019-03-22] MEDS ORDERED: ATROPINE SULFATE 0.1 MG/ML 10ML SYR IV PRN (14:14)
[2019-03-22] MEDS ORDERED: HYDROmorphone INJ 2 MG/ML SYR/VIAL ONE (14:14)
[2019-03-22] MEDS ORDERED: KETOROLAC 30 MG/ML VIAL IV PRN (14:14)
[2019-03-22] MEDS ORDERED: HYDROmorphone INJ 2 MG/ML SYR/VIAL IV PRN (14:14)
[2019-03-22] MEDS ORDERED: LABETALOL HCL IV 5 MG/ML 20ML IV PRN (14:14)
[2019-03-22] MEDS ORDERED: BUPIVACAINE/EPINEPHRINE 0.5% MPF 1:200,000 30 ML VIAL ONE (14:28)
--- NOTE | 2019-03-22 14:33 | History & Physical Bridge Note ---
Date of Service March 22, 2019 History & Physical Bridge Note I have examined the patient, reviewed the History & Physical and in the interval since the performance of the History & Physical I have noted the following changes of clinical significance: no changes noted Unable to contact any "contacts" on patient's chart( attempted 3 different numbers). pt himself denied having any family to call to discuss care. not emergency but urgent and I recommend proceeding with surgery. pt was more oriented early when he consented to surgery. withdrawal seems worse currently/pt more confused. discussed with nursing/anesthesia. will proceed with surgery.
[2019-03-22] MEDS ORDERED: KETAMINE HCL INJ 50 MG/ML 10 ML VIAL ONE (14:42)
[2019-03-22] MEDS ORDERED: CEFAZOLIN 250 MG/ML 1 GM VIAL ONE (15:12)
[2019-03-22] MEDS ORDERED: DiphenhydrAMINE HCL 50 MG/ML VIAL ONE (15:24)
[2019-03-22] MEDS ORDERED: raNITIdine HCl 25 MG/ML VIAL IV ONE (15:24)
--- NOTE | 2019-03-22 16:28 | Operative Report ---
Post Operative Report Pre & Post Diagnosis Operation Date: 03/22/19 13:20 Pre-Op Diagnosis: Small Bowel Obstruction;cecal bascule Post-Op Diagnosis: Small Bowel Obstruction;cecal bascule Procedure Operation Date: 03/22/19 13:20 Actual Procedures p Right Open Extended Hemicolectomy(Right) - Nick Alaniz DO Surgeon Nick Alaniz DO Drop Hammer Setter Up priscila Ybarra Estimated Blood Loss 10 Findings Consistent with Post-Op Diagnosis Specimens terminal ileum, right colon, portion of transverse colon Description of Procedure After informed consent was obtained the patient was taken to the operating room and placed in supine position. After successful intubation a Beal catheter and nasogastric tube were placed. The abdomen was shaved and sterilely prepped and draped in usual fashion. A midline incision was made with a 10 blade scalpel and carried down and around the umbilicus. This was carried down through soft tissue using cautery. The anterior rectus fascia was opened using cautery. Peritoneum was elevated with hemostats and incised under direct vision using a Metzenbaum scissor. We extended this to both poles using cautery. Once in the abdomen the small bowel, right colon and transverse colon were markedly dilated. The cecum itself was in the left mid abdomen. This had caused a twisting of the distal ileum causing a small bowel obstruction. There was some mild ischemia of a portion of the small bowel as well as cecum. There was no infarcted bowel and no perforation. The distal ileum and almost the entire colon was full of very hard stone like stool. The right colon was pulled completely away from the right retroperitoneum and was in the midline of the abdomen. I began by transecting the terminal ileum using a LAURA brown cartridge linear stapler. We then picked a spot in the mid transverse colon just proximal to the middle colic vessels. We milked the stools towards the specimen and then clamped the bowel. We transected the transverse colon using a LAURA purple cartridge stapler. The ligaSure device was then used to take down the mesentery. The specimen which included terminal ileum, cecum, right colon and a portion of transverse colon were passed off to be sent to pathology. Next we performed a side to side small bowel to transverse colon anastomosis using a LAURA brown cartridge 60 mm stapler. The common enterotomy was closed using a TA 60 stapling device. 3-[address] was [address] to place a crotch stitch as well as to oversew all the staple lines in Lembert fashion. There was no spillage during this process. The anastomosis was widely patent and there was no evidence of ischemia. We then changed our gloves. The mesenteric defect was closed using 2-0 Vicryl in running fashion. We ran the bowel backwards from the ligament of Treitz to the anastomosis. There was no evidence of twisting of the mesentery and no further bowel obstruction. The remainder of the anatomy appeared normal. We verified NG tube positioning in the distal stomach. Final irrigation was performed. We closed the fascia using 0-looped PDS starting at either pole and running and securing them together in the midline. Soft tissue was irrigated and skin was closed using skin julio. Silver dressing was applied. The patient was awakened extubated and transferred to recovery in stable condition. My physician's sales assistant was present to the entire case. He assisted with retraction during my dissection. He assisted with the anastomosis as well as with wound closure and dressing placement. I attest to the content of the Intraoperative Record and any orders documented therein. Any exceptions are noted below.
--- NOTE | 2019-03-22 18:21 | Hospitalist Progress Note ---
Date of Service March 22, 2019 Assessment & Plan (1) Cecal bascule: Causing intestinal obstruction Possibly ischemic Appreciate surgery input and recommendation He went for exploratory laparotomy this afternoon Present on Admission?: Yes (2) SBO (small bowel obstruction): This is a 38 yo M with PMH heroin abuse and depression who presents with progressive diffuse abdominal pain that began 1 week ago and was found to have small bowel obstruction and possible cecal volvulus/bascule. -Worsening abdominal pain x 1 week -CT abd/pelvis with progressively dilated small bowel loops with multiple air- fluid levels. The transverse and left colon are decompressed. The cecum appears to be positioned within the midline. The findings are consistent with a small bowel obstruction, possibly on the basis of a cecal volvulus/bascule -Evaluated by Dr. Sawant of general surgery-no immediate plan for surgery was contemplated on admission -Started on conservative management with NG tube, IV fluids, pain control, trend WBC and lactate -Condition deteriorated with increasing abdominal distention and increasing tenderness and guarding the right lower quadrant -Underwent right open extended hemicolectomy by Dr. Alaniz on 03/22 (3) Heroin abuse: Last used this morning -Clonidine PRN, Ativan PRN -Patient is very lethargic and did not show any evidence of withdrawal symptoms DVT Ppx: Tristen talbert, ambulation Code status: FULL PCP: Unassigned Dispo: Admitted to PCU. Plan to return home once medically stable. Subjective 03/22 Patient was seen and examined in telemetry unit This is a 38 yo M with PMH heroin abuse and depression who presents with progressive diffuse abdominal pain that began 1 week ago This was his second year visit with same symptoms and He was septic at presentation noted to have sickle volvulus He was very drowsy this morning when I examined him His abdomen is distended but he denies any significant pain In the cecal area is very tender Review of Systems Review of Systems: All systems reviewed and are unremarkable except as noted below Constitutional: + fever, + fatigue, + malaise and + weakness Eyes: Closed Respiratory: + dyspnea (Minimal shortness of breath at rest) Gastrointestinal: + abdominal pain Neurologic: + problem reported (Very drowsy but was communicating) Physical Exam Physical Exam: Lying in bed without any significant symptoms but very lethargic Constitutional: + acute distress (Mostly due to withdrawal symptoms, patient is rocking back and forth on the side of the bed), + ill appearing and + cachectic; + not well nourished Eyes: PERRL, conjunctivae normal, anicteric sclerae ENMT: external ear and nose normal, oropharynx normal Mouth: + poor dentition and + small oral opening Mallampati Class: III Neck: trachea midline, no thyromegaly normal visual inspection Respiratory: normal respiratory effort and + respiratory distress (Minimal shortness of breath at rest) Auscultation: lungs clear to auscultation bilaterally Cardiovascular: Rate/Rhythm: regular rate and regular rhythm Heart Sounds: no murmur Gastrointestinal (Abdomen): Inspection/Auscultation: + abdomen distended Percussion/Palpation: + abdomen tender (All over but mostly right lower quadrant), + guarding and + abdomen rigid Musculoskeletal: no cyanosis or clubbing, extremities motor strength 5/5 Skin: no rashes, warm and dry Neurologic: Alert, awake and very drowsy. Generalized weakness. Moving all limbs Psychiatric: A+Ox3, euthymic affect Affect: + anxious affect Lymphatic: no cervical or axillary lymphadenopathy Results & Data Vital Signs (Past 12 Hours) Vital Signs Temp Pulse Resp BP BP Pulse Ox 03/22/19 18:00 37.4 C 88 22 148/97 H 97 03/22/19 17:50 37.4 C 88 18 144/98 H 98 03/22/19 17:40 83 21 154/106 H 98 03/22/19 17:25 76 17 154/108 H 100 03/22/19 17:15 74 22 154/106 H 100 03/22/19 17:11 63 14 100 03/22/19 17:05 66 18 148/108 H 100 03/22/19 16:55 36.1 C L 66 18 155/104 H 100 03/22/19 13:40 37.4 C 99 H 20 127/83 96 03/22/19 11:49 37.0 C 97 H 17 135/88 93 03/22/19 07:37 36.9 C 91 H 20 131/84 95 Laboratory Results Short CBC 03/22/19 03/22/19 Range/Units 01:54 05:33 WBC 14.83 H 13.73 H (4.8-10.8) K/uL Hgb 16.3 (14.0-18.0) g/dL Hct 46.8 (42-52) % Plt Count 281 (130-400) K/uL BMP 03/22/19 05:33 Sodium 132 L Potassium 4.1 Chloride 90 L Carbon Dioxide 34 H BUN 29 H D Creatinine 1.17 Glucose 150 H Calcium 9.1 Medications Administered Current Inpatient Medications Clonidine HCl (Catapres) 0.1 mg PO Q8H FAY Stop: 04/20/19 19:59 Last Admin: 03/22/19 12:07 Dose: 0.1 mg Documented by: Hydromorphone HCl (Dilaudid) 1 mg IV Q4H PRN PRN Reason: Pain Stop: 04/04/19 19:54 Last Admin: 03/22/19 08:44 Dose: 1 mg Documented by: Sodium Chloride (Nss 1000ml) 1,000 mls @ 125 mls/hr IV .Q8H FAY Stop: 04/20/19 15:14 Last Infusion: 03/22/19 17:35 Dose: Infused Documented by: Piperacillin Sod/Tazobactam (Sod 3.375 gm/ Dextrose) 115 mls @ 28.75 mls/hr IV Q8H [facility]; Protocol Stop: 04/01/19 01:59 Last Infusion: 03/22/19 13:09 Dose: Infused Documented by: Lorazepam (Ativan) 1 mg in 2 mls @ 2 mls/min IV Q3H PRN PRN Reason: Anxiety/Agitation Stop: 04/21/19 09:35 Last Admin: 03/22/19 12:12 Dose: 2 mls/min Documented by: Miscellaneous Information (Consult) 1 ea N/A UD PRN PRN Reason: Consult Stop: 04/20/19 19:41 Morphine Sulfate (Morphine Sulfate) 4 mg IV Q3H PRN PRN Reason: Pain Stop: 04/04/19 21:25 Last Admin: 03/22/19 12:07 Dose: 4 mg Documented by: Ondansetron HCl (Zofran) 4 mg IV Q6H PRN PRN Reason: Nausea Stop: 04/20/19 19:27 Last Admin: 03/22/19 08:43 Dose: 4 mg Documented by: Ondansetron HCl (Zofran Odt) 4 mg PO Q6H PRN PRN Reason: Nausea Stop: 04/20/19 21:28
--- NOTE | 2019-03-22 19:01 | Anesthesiology Progress Note ---
Date of Service March 22, 2019 Anesthesia Post Procedure Vital Signs Vital Signs: Temp Pulse Pulse Resp BP BP Pulse Ox 03/22/19 18:24 37.1 C 92 H 18 152/101 H 94 03/22/19 18:00 37.4 C 88 22 148/97 H 97 03/22/19 17:50 37.4 C 88 18 144/98 H 98 03/22/19 17:40 83 21 154/106 H 98 03/22/19 17:25 76 17 154/108 H 100 03/22/19 17:15 74 22 154/106 H 100 03/22/19 17:11 63 14 100 03/22/19 17:05 66 18 148/108 H 100 03/22/19 16:55 36.1 C L 66 18 155/104 H 100 03/22/19 13:40 37.4 C 99 H 20 127/83 96 03/22/19 11:49 37.0 C 97 H 17 135/88 93 03/22/19 07:37 36.9 C 91 H 20 131/84 95 03/22/19 03:25 37.0 C 97 H 16 147/105 H 93 03/22/19 00:00 94 H 03/21/19 22:59 37.2 C 96 H 19 124/75 94 03/21/19 19:46 36.4 C L 74 20 135/53 L 03/21/19 19:20 92 H Pain Intensity Abdomen: Pain Intensity: 8 Transfer of Care Handoff Completed per policy Notes Mental Status: alert / awake / arousable and participated in evaluation Patient Amnestic to Procedure: Yes Nausea / Vomiting: adequately controlled Pain: adequately controlled Airway Patency, RR, SpO2: stable & adequate BP & HR: stable & adequate Hydration State: stable & adequate Anesthetic Complications: no major complications apparent
[2019-03-22] MEDS: ACETAMINOPHEN 1,000 MG/100 ML VIAL IV SCH (20:24)
[2019-03-23] MEDS: MoRPHine SULFATE 4 MG/ML 1 ML CARP\\VIAL IV PRN ×2 (00:58→08:29)
[2019-03-23] MEDS: HYDROmorphone INJ 1 MG/ML SYRINGE IV PRN ×7 (01:25→22:12)
[2019-03-23] MEDS: SODIUM CHLORIDE 0.9% 1000ML 1,000 ML IV SCH ×3 (02:26→17:31)
[2019-03-23] MEDS: PIPERACILLIN/TAZOBACTAM 3.375 GM in DEXTROSE 5% 100 ML IV SCH ×3 (02:28→17:31)
[2019-03-23] MEDS: cloNIDine HCl 0.1 MG TAB PO SCH ×3 (04:48→20:20)
[2019-03-23] MEDS: ACETAMINOPHEN 1,000 MG/100 ML VIAL IV SCH ×3 (04:48→20:20)
[2019-03-23 07:43] LABS: Basophils # (auto) 0.01 K/uL (0-0.2); Basophils % (auto) 0.2 %; Eosinophils # (auto) 0.01 K/uL (0-0.5); Eosinophils % (auto) 0.2 %; Hematocrit (blood only) 42.7 % (42-52); Hemoglobin 14.5 g/dL (14.0-18.0); Lymphocytes # (auto) 0.72 K/uL (1.2-3.4); Lymphocytes % (auto) 13.1 %; Mean Corpuscular Volume 89.7 fL (80-100); Monocytes # (auto) 1.05 K/uL (0.11-0.59); Monocytes % (auto) 19.1 %; Neutrophils # (auto) 3.72 K/uL (1.4-6.5); Neutrophils % (auto) 67.4 %; Platelet Count 184 K/uL (130-400); RDW Coefficient of Variation 12.8 % (11.5-14.5); Red Blood Count 4.76 M/uL (4.7-6.1); White Blood Count 5.51 K/uL (4.8-10.8)
--- NOTE | 2019-03-23 07:48 | Anesthesiology Progress Note ---
Date of Service March 23, 2019 Anesthesia Post Procedure Vital Signs Vital Signs: Temp Pulse Pulse Resp BP BP Pulse Ox 03/23/19 07:37 36.7 C 109 H 20 124/63 98 03/23/19 04:12 37.4 C 104 H 20 131/83 94 03/23/19 00:00 100 H 03/22/19 23:10 37.4 C 98 H 24 148/87 H 95 03/22/19 19:00 102 H 20 143/94 H 94 03/22/19 18:45 100 H 20 145/97 H 96 03/22/19 18:24 37.1 C 92 H 18 152/101 H 94 03/22/19 18:00 37.4 C 88 22 148/97 H 97 03/22/19 17:50 37.4 C 88 18 144/98 H 98 03/22/19 17:40 83 21 154/106 H 98 03/22/19 17:25 76 17 154/108 H 100 03/22/19 17:15 74 22 154/106 H 100 03/22/19 17:11 63 14 100 03/22/19 17:05 66 18 148/108 H 100 03/22/19 16:55 36.1 C L 66 18 155/104 H 100 03/22/19 13:40 37.4 C 99 H 20 127/83 96 03/22/19 11:49 37.0 C 97 H 17 135/88 93 Pain Intensity Abdomen: Pain Intensity: 6 Notes Mental Status: alert / awake / arousable and participated in evaluation Patient Amnestic to Procedure: Yes Nausea / Vomiting: adequately controlled Pain: adequately controlled Airway Patency, RR, SpO2: stable & adequate BP & HR: stable & adequate Hydration State: stable & adequate Anesthetic Complications: no major complications apparent and Pt Satisfied with anesthetic care
[2019-03-23 08:17] LABS: Albumin Level 2.7 gm/dl (3.4-5.0); BUN Creatinine Ratio 25.1 (10-20); Creatinine Clr Calc Pharmacy 123.2 ml/min; Est GFR (African American) 122.7; Est GFR (Non-African American) 105.9; Magnesium 2.7 mg/dl (1.8-2.4); Potassium 3.9 mmol/L (3.5-5.1)
[2019-03-23 08:21] LABS: Albumin Globulin Ratio 0.7 (0.9-2); Bilirubin,Total 1.1 mg/dl (0.2-1); Globulin 3.6 gm/dl (2.5-4.0); Phosphorus 2.5 mg/dl (2.5-4.9); Total Protein 6.4 gm/dl (6.4-8.2)
--- NOTE | 2019-03-23 13:34 | Hospitalist Progress Note ---
Date of Service March 23, 2019 Assessment & Plan (1) Cecal bascule: Causing intestinal obstruction Possibly ischemic Appreciate surgery input and recommendation He went for exploratory laparotomy this afternoon Status post right open extended hemicolectomy involving terminal ileum, right colon and portion of transverse colon POD #1 Management as per surgery We will continue Dilaudid 1 mg intravenously daily 1 hour as per surgery and discontinue morphine (2) SBO (small bowel obstruction): This is a 38 yo M with PMH heroin abuse and depression who presents with progressive diffuse abdominal pain that began 1 week ago and was found to have small bowel obstruction and possible cecal volvulus/bascule. -Worsening abdominal pain x 1 week -CT abd/pelvis with progressively dilated small bowel loops with multiple air- fluid levels. The transverse and left colon are decompressed. The cecum appears to be positioned within the midline. The findings are consistent with a small bowel obstruction, possibly on the basis of a cecal volvulus/bascule -Evaluated by Dr. Sawant of general surgery-no immediate plan for surgery was contemplated on admission -Started on conservative management with NG tube, IV fluids, pain control, trend WBC and lactate -Condition deteriorated with increasing abdominal distention and increasing tenderness and guarding the right lower quadrant -Underwent right open extended hemicolectomy by Dr. Alaniz on 03/22 -Continue NG suction for now and give him n.p.o. (3) Heroin abuse: Last used this morning -Clonidine PRN, Ativan PRN -Patient is very lethargic and did not show any evidence of withdrawal symptoms -Will try to reduce the use of narcotics and anxiolytics DVT Ppx: Tristen talbert, ambulation Code status: FULL PCP: Unassigned Dispo: Admitted to PCU. Plan to return home once medically stable. Subjective 03/22 Patient was seen and examined in telemetry unit This is a 38 yo M with PMH heroin abuse and depression who presents with progressive diffuse abdominal pain that began 1 week ago This was his second ER visit with same symptoms and He was septic at presentation noted to have sickle volvulus He was very drowsy this morning when I examined him His abdomen is distended but he denies any significant pain In the cecal area is very tender 03/23 Patient was seen and examined in telemetry unit He is status post right open extended hemicolectomy on 03/22 He complains of abdominal pain without any nausea and/or vomiting He remains n.p.o. Review of Systems Review of Systems: All systems reviewed and are unremarkable except as noted b elow Constitutional: + fever, + fatigue, + malaise and + weakness Eyes: Closed Respiratory: + dyspnea (Minimal shortness of breath at rest) Gastrointestinal: + abdominal pain Neurologic: + problem reported (Remains drowsy but much awake compared to yesterday) Physical Exam Physical Exam: Lying in bed comfortably without any acute distress Constitutional: + ill appearing and + cachectic; + not well nourished Eyes: PERRL, conjunctivae normal, anicteric sclerae ENMT: external ear and nose normal, oropharynx normal Mouth: + poor dentition and + small oral opening Mallampati Class: III Neck: trachea midline, no thyromegaly normal visual inspection Respiratory: normal respiratory effort and + respiratory distress (Minimal shortness of breath at rest) Auscultation: + diminished lung sounds Cardiovascular: Rate/Rhythm: regular rate and regular rhythm Heart Sounds: no murmur Gastrointestinal (Abdomen): Inspection/Auscultation: + abdomen distended Percussion/Palpation: + abdomen tender (All over but mostly right lower quadrant), + guarding and + abdomen rigid Status post right extended siena colectomy Musculoskeletal: no cyanosis or clubbing, extremities motor strength 5/5 No acute arthritis Skin: no rashes, warm and dry Neurologic: Remains drowsy from surgery and use of pain medications Psychiatric: A+Ox3, euthymic affect Affect: + anxious affect Lymphatic: no cervical or axillary lymphadenopathy Results & Data Vital Signs (Past 12 Hours) Vital Signs Temp Pulse Resp BP Pulse Ox 03/23/19 13:14 36.5 C 100 H 16 113/61 98 03/23/19 07:37 36.7 C 109 H 20 124/63 98 03/23/19 04:12 37.4 C 104 H 20 131/83 94 Laboratory Results Short CBC 03/23/19 Range/Units 07:27 WBC 5.51 (4.8-10.8) K/uL Hgb 14.5 (14.0-18.0) g/dL Hct 42.7 (42-52) % Plt Count 184 (130-400) K/uL BMP 03/23/19 07:27 Sodium 132 L Potassium 3.9 Chloride 97 L Carbon Dioxide 30 BUN 23 H Creatinine 0.92 Glucose 118 H Calcium 8.0 L Liver Function 03/23/19 Range/Units 07:27 Total Bilirubin 1.1 H D (0.2-1) mg/dl AST 15 (15-37) U/L ALT 25 (12-78) U/L Alkaline Phosphatase 68 (45-117) U/L Albumin 2.7 L (3.4-5.0) gm/dl Medications Administered Current Inpatient Medications Clonidine HCl (Catapres) 0.1 mg PO Q8H FAY Stop: 04/20/19 19:59 Last Admin: 03/23/19 12:31 Dose: Not Given Documented by: Hydromorphone HCl (Dilaudid) 1 mg IV Q1H PRN PRN Reason: Pain Stop: 04/05/19 18:22 Last Admin: 03/23/19 11:28 Dose: 1 mg Documented by: Sodium Chloride (Nss 1000ml) 1,000 mls @ 125 mls/hr IV .Q8H FAY Stop: 04/20/19 15:14 Last Admin: 03/23/19 10:27 Dose: 125 mls/hr Documented by: Piperacillin Sod/Tazobactam (Sod 3.375 gm/ Dextrose) 115 mls @ 28.75 mls/hr IV Q8H [facility]; Protocol Stop: 04/01/19 01:59 Last Admin: 03/23/19 10:27 Dose: 30 mls/hr Documented by: Lorazepam (Ativan) 1 mg in 2 mls @ 2 mls/min IV Q3H PRN PRN Reason: Anxiety/Agitation Stop: 04/21/19 09:35 Last Admin: 03/22/19 20:32 Dose: 2 mls/min Documented by: Acetaminophen (Ofirmev) 1,000 mg in 100 mls @ 400 mls/hr IV Q8H FAY Stop: 04/21/19 19:59 Last Infusion: 03/23/19 12:55 Dose: Infused Documented by: Ketorolac Tromethamine (Toradol) 30 mg IV Q6H PRN PRN Reason: Pain Stop: 03/27/19 18:22 Miscellaneous Information (Consult) 1 ea N/A UD PRN PRN Reason: Consult Stop: 04/20/19 19:41 Ondansetron HCl (Zofran) 4 mg IV Q6H PRN PRN Reason: Nausea Stop: 04/20/19 19:27 Last Admin: 03/22/19 08:43 Dose: 4 mg Documented by:
[2019-03-23] MEDS: KETOROLAC 30 MG/ML VIAL IV PRN (22:56)
[2019-03-24] MEDS: SODIUM CHLORIDE 0.9% 1000ML 1,000 ML IV SCH ×2 (01:30→09:26)
[2019-03-24] MEDS: PIPERACILLIN/TAZOBACTAM 3.375 GM in DEXTROSE 5% 100 ML IV SCH ×3 (01:45→18:05)
[2019-03-24] MEDS: HYDROmorphone INJ 1 MG/ML SYRINGE IV PRN ×9 (01:45→23:32)
[2019-03-24] MEDS: cloNIDine HCl 0.1 MG TAB PO SCH ×3 (03:45→21:29)
[2019-03-24] MEDS: ACETAMINOPHEN 1,000 MG/100 ML VIAL IV SCH ×3 (04:38→20:09)
[2019-03-24] MEDS: KETOROLAC 30 MG/ML VIAL IV PRN ×2 (06:51→15:58)
--- NOTE | 2019-03-24 08:38 | Surgery Progress Note ---
Date of Service F/U S/P right hemicolectomy, POD 2 pt is stable, no significant abdominal pain, no nausea, no vomiting, not pass gas yet, [id number], March 24, 2019 Assessment & Plan (1) Cecal bascule: S/P right hemicolectomy, POD 2 doing fine, not pass gas yet. continue treatment repeat labs in am, will F/U Physical Exam Constitutional: WD/WN, vitals as above Neck: trachea midline, no thyromegaly Respiratory: normal respiratory effort, lungs clear to auscultation normal respiratory effort Cardiovascular: RRR, no murmur, no edema Rate/Rhythm: regular rate and regular rhythm Gastrointestinal (Abdomen): normal bowel sounds, soft, nontender, no hepatospl enomegaly Percussion/Palpation: abdomen soft mild tenderness at incision site, no rebound pain, BS +-. dressing in tact Musculoskeletal: no cyanosis or clubbing, extremities motor strength 5/5 Neurologic: patellar DTR's 2+ bilat, sensation intact Psychiatric: Orientation: alert and oriented x 3 Results & Data Vital Signs (Past 12 Hours) Vital Signs Temp Pulse Pulse Resp BP BP Pulse Ox 03/24/19 07:16 37.2 C 86 18 129/73 93 03/24/19 02:37 36.8 C 85 19 139/83 95 03/24/19 00:00 89 Laboratory Results Abnormal lab results 03/23/19 Range/Units 12:17 POC Glucose 135 H (70-99)
[2019-03-24] MEDS ORDERED: Nursing to Pharmacy Communication ONE (09:22)
[2019-03-24 09:25] LABS: Eosinophils # (auto) 0.03 K/uL (0-0.5); Eosinophils % (auto) 0.6 %; Hemoglobin 13.6 g/dL (14.0-18.0); Immature Granulocytes # (auto) 0.01 K/uL (0.00-0.02); Immature Granulocytes % (auto) 0.2 %; Lymphocytes % (auto) 20.3 %; Mean Corpuscular Volume 91.3 fL (80-100); Mean Platelet Volume 11.9 fL (7.4-10.4); Monocytes # (auto) 1.11 K/uL (0.11-0.59); Monocytes % (auto) 22.6 %; Neutrophils # (auto) 2.77 K/uL (1.4-6.5); Neutrophils % (auto) 56.3 %; Platelet Count 201 K/uL (130-400); RDW Coefficient of Variation 12.4 % (11.5-14.5); RDW Standard Deviation 42.1 fL (36.4-46.3); Red Blood Count 4.38 M/uL (4.7-6.1); White Blood Count 4.92 K/uL (4.8-10.8)
[2019-03-24] MEDS: D5W AND NSS 1,000 ML IV SCH ×2 (09:44→18:06)
[2019-03-24 09:46] LABS: BUN Creatinine Ratio 26.6 (10-20); Calcium 8.2 mg/dl (8.5-10.1); Creatinine Clr Calc Pharmacy 146.9 ml/min; Est GFR (African American) 133.7; Est GFR (Non-African American) 115.3; Magnesium 2.5 mg/dl (1.8-2.4); Potassium 3.4 mmol/L (3.5-5.1)
[2019-03-24 09:55] LABS: Phosphorus 1.6 mg/dl (2.5-4.9)
[2019-03-24] MEDS ORDERED: POTASSIUM PHOS 3 MMOL/1 ML INFUSION IV STA (10:36)
[2019-03-24] MEDS ORDERED: POTASSIUM PHOSPHATE 30 MMOL in SODIUM CHLORIDE 0.9% 500 ML IV ONE (11:00)
[2019-03-24] MEDS: NICOTINE 14 MG/24 HR PATCH TD SCH (14:11)
--- NOTE | 2019-03-24 15:29 | Hospitalist Progress Note ---
Date of Service March 24, 2019 Assessment & Plan (1) Cecal bascule: Causing intestinal obstruction Possibly ischemic Appreciate surgery input and recommendation He went for exploratory laparotomy this afternoon Status post right open extended hemicolectomy involving terminal ileum, right colon and portion of transverse colon POD #2 Management as per surgery We will continue Dilaudid 1 mg intravenously daily 1 hour as per surgery and discontinue morphine Remains stable clinically Continue to have NG suction Bowel sounds remains sluggish We will keep him n.p.o. for now (2) SBO (small bowel obstruction): This is a 38 yo M with H heroin abuse and depression who presents with progressive diffuse abdominal pain that began 1 week ago and was found to have small bowel obstruction and possible cecal volvulus/bascule. -Worsening abdominal pain x 1 week -CT abd/pelvis with progressively dilated small bowel loops with multiple air- fluid levels. The transverse and left colon are decompressed. The cecum appears to be positioned within the midline. The findings are consistent with a small bowel obstruction, possibly on the basis of a cecal volvulus/bascule -Evaluated by Dr. Sawant of general surgery-no immediate plan for surgery was contemplated on admission -Started on conservative management with NG tube, IV fluids, pain control, trend WBC and lactate -Condition deteriorated with increasing abdominal distention and increasing tenderness and guarding the right lower quadrant -Underwent right open extended hemicolectomy by Dr. Alaniz on 03/22 -Continue NG suction for now and give him n.p.o. -Ice chips to keep mouth moist -Likely DC NG tube tomorrow and to start clears orally at the end of the day (3) Heroin abuse: Last used this morning -Clonidine PRN, Ativan PRN -Patient is very lethargic and did not show any evidence of withdrawal symptoms -Will try to reduce the use of narcotics and anxiolytics DVT Ppx: Tristen talbert, ambulation Code status: FULL PCP: Unassigned Dispo: Admitted to PCU. Plan to return home once medically stable. Medically stable to be transferred to medical floor Subjective 03/24 The patient was seen and examined in telemetry unit He has been stable and complains to have abdominal pain and wants to eat Denies any chest pain and/or palpitation or any shortness of breath Does not have any nausea and/or vomiting Review of Systems Review of Systems: All systems reviewed and are unremarkable except as noted below Constitutional: + fever, + fatigue, + malaise and + weakness Eyes: Closed Respiratory: + dyspnea (Minimal shortness of breath at rest) Gastrointestinal: + abdominal pain Neurologic: + problem reported (Remains drowsy but much awake compared to yesterday) Physical Exam Physical Exam: Moderate distress at rest, status post laparotomy and colon resection as specified Constitutional: + ill appearing and + cachectic; + not well nourished Eyes: PERRL, conjunctivae normal, anicteric sclerae ENMT: external ear and nose normal, oropharynx normal Mouth: + poor dentition and + small oral opening Mallampati Class: III Neck: trachea midline, no thyromegaly normal visual inspection Respiratory: + respiratory distress (Minimal shortness of breath at rest) Auscultation: + diminished lung sounds Cardiovascular: Rate/Rhythm: regular rate and regular rhythm Heart Sounds: no murmur Gastrointestinal (Abdomen): Inspection/Auscultation: + abdomen distended and normal bowel sounds (Sluggish) Percussion/Palpation: + abdomen tender (All over but mostly right lower quadrant), + guarding and + abdomen rigid Musculoskeletal: no cyanosis or clubbing, extremities motor strength 5/5 Skin: no rashes, warm and dry Neurologic: moves all extremities Alert, awake and oriented x3. Generally weak Psychiatric: A+Ox3, euthymic affect Affect: + anxious affect Lymphatic: no cervical or axillary lymphadenopathy Results & Data Vital Signs (Past 12 Hours) Vital Signs Temp Pulse Pulse Resp BP BP Pulse Ox 03/24/19 14:55 37.0 C 78 16 128/81 92 03/24/19 10:55 37.1 C 79 18 123/75 97 03/24/19 07:16 37.2 C 86 18 129/73 93 Laboratory Results Short CBC 03/24/19 Range/Units 09:06 WBC 4.92 (4.8-10.8) K/uL Hgb 13.6 L (14.0-18.0) g/dL Hct 40.0 L (42-52) % Plt Count 201 (130-400) K/uL BMP 03/24/19 09:06 Sodium 137 Potassium 3.4 L Chloride 99 Carbon Dioxide 31 BUN 21 H Creatinine 0.78 Glucose 85 Calcium 8.2 L Medications Administered Current Inpatient Medications Clonidine HCl (Catapres) 0.1 mg PO Q8H [facility] Stop: 04/20/19 19:59 Last Admin: 03/24/19 13:22 Dose: 0.1 mg Documented by: Hydromorphone HCl (Dilaudid) 1 mg IV Q1H PRN PRN Reason: Pain Stop: 04/05/19 18:22 Last Admin: 03/24/19 11:42 Dose: 1 mg Documented by: Piperacillin Sod/Tazobactam (Sod 3.375 gm/ Dextrose) 115 mls @ 28.75 mls/hr IV Q8H [facility]; Protocol Stop: 04/01/19 01:59 Last Infusion: 03/24/19 13:44 Dose: Infused Documented by: Lorazepam (Ativan) 1 mg in 2 mls @ 2 mls/min IV Q3H PRN PRN Reason: Anxiety/Agitation Stop: 04/21/19 09:35 Last Admin: 03/22/19 20:32 Dose: 2 mls/min Documented by: Acetaminophen (Ofirmev) 1,000 mg in 100 mls @ 400 mls/hr IV Q8H [facility] Stop: 04/21/19 19:59 Last Infusion: 03/24/19 13:42 Dose: Infused Documented by: Dextrose/Sodium Chloride (D5w And Nss) 1,000 mls @ 100 mls/hr IV .Q10H [facility] Stop: 04/23/19 09:44 Last Infusion: 03/24/19 13:50 Dose: 0 mls/hr Documented by: Potassium Phosphate 30 mmol/ (Sodium Chloride) 510 mls @ 102 mls/hr IV 1100 ONE Stop: 03/24/19 15:59 Last Admin: 03/24/19 12:22 Dose: 102 mls/hr Documented by: Thiamine HCl 100 mg/ Syringe 10 mls @ 2 mls/min IV QAM [facility] Stop: 04/23/19 15:14 Ketorolac Tromethamine (Toradol) 30 mg IV Q6H PRN PRN Reason: Pain Stop: 03/27/19 18:22 Last Admin: 03/24/19 06:51 Dose: 30 mg Documented by: Miscellaneous (Remove Nicoderm Patch) 1 ea N/A HS FAY Stop: 04/23/19 20:59 Miscellaneous Information (Consult) 1 ea N/A UD PRN PRN Reason: Consult Stop: 04/20/19 19:41 Nicotine (Nicoderm Cq) 14 mg TD QAM [facility]AY Stop: 04/23/19 13:14 Last Admin: 03/24/19 14:11 Dose: 14 mg Documented by: Ondansetron HCl (Zofran) 4 mg IV Q6H PRN PRN Reason: Nausea Stop: 04/20/19 19:27 Last Admin: 03/22/19 08:43 Dose: 4 mg Documented by:
[2019-03-24] MEDS: THIAMINE HCL 100 MG in SYRINGE 9 ML IV SCH (16:38)
[2019-03-25] MEDS: KETOROLAC 30 MG/ML VIAL IV PRN ×2 (00:54→17:03)
[2019-03-25] MEDS: PIPERACILLIN/TAZOBACTAM 3.375 GM in DEXTROSE 5% 100 ML IV SCH ×3 (00:54→17:43)
[2019-03-25] MEDS: HYDROmorphone INJ 1 MG/ML SYRINGE IV PRN ×11 (01:39→23:33)
[2019-03-25] MEDS: ACETAMINOPHEN 1,000 MG/100 ML VIAL IV SCH ×3 (03:10→19:53)
[2019-03-25] MEDS: D5W AND NSS 1,000 ML IV SCH (04:45)
[2019-03-25] MEDS: cloNIDine HCl 0.1 MG TAB PO SCH ×3 (04:48→19:51)
[2019-03-25 07:30] LABS: Basophils # (auto) 0.01 K/uL (0-0.2); Basophils % (auto) 0.2 %; Eosinophils # (auto) 0.11 K/uL (0-0.5); Eosinophils % (auto) 2.4 %; Hematocrit (blood only) 39.1 % (42-52); Hemoglobin 13.2 g/dL (14.0-18.0); Immature Granulocytes # (auto) 0.01 K/uL (0.00-0.02); Immature Granulocytes % (auto) 0.2 %; Lymphocytes # (auto) 1.09 K/uL (1.2-3.4); Lymphocytes % (auto) 24.3 %; Mean Corpuscular Hgb Conc 33.8 g/dL (32-36); Mean Corpuscular Volume 90.1 fL (80-100); Mean Platelet Volume 11.5 fL (7.4-10.4); Monocytes % (auto) 22.3 %; Neutrophils # (auto) 2.27 K/uL (1.4-6.5); Neutrophils % (auto) 50.6 %; Platelet Count 204 K/uL (130-400); RDW Coefficient of Variation 12.2 % (11.5-14.5); RDW Standard Deviation 40.1 fL (36.4-46.3); Red Blood Count 4.34 M/uL (4.7-6.1); White Blood Count 4.49 K/uL (4.8-10.8)
[2019-03-25 08:19] LABS: Albumin Level 2.3 gm/dl (3.4-5.0); BUN Creatinine Ratio 22.2 (10-20); Calcium 8.1 mg/dl (8.5-10.1); Creatinine Clr Calc Pharmacy 150.2 ml/min; Est GFR (African American) 133.7; Est GFR (Non-African American) 115.3; Magnesium 2.2 mg/dl (1.8-2.4)
[2019-03-25 08:27] LABS: Albumin Globulin Ratio 0.6 (0.9-2); Bilirubin,Total 0.5 mg/dl (0.2-1); Globulin 3.6 gm/dl (2.5-4.0); Phosphorus 2.6 mg/dl (2.5-4.9); Total Protein 5.9 gm/dl (6.4-8.2)
[2019-03-25] MEDS: THIAMINE HCL 100 MG in SYRINGE 9 ML IV SCH (09:33)
[2019-03-25] MEDS: NICOTINE 14 MG/24 HR PATCH TD SCH (09:33)
--- NOTE | 2019-03-25 12:30 | Hospitalist Progress Note ---
Date of Service March 25, 2019 Assessment & Plan (1) Cecal bascule: Causing intestinal obstruction Possibly ischemic Appreciate surgery input and recommendation He went for exploratory laparotomy this afternoon Status post right open extended hemicolectomy involving terminal ileum, right colon and portion of transverse colon POD #3 Management as per surgery We will continue Dilaudid 1 mg intravenously daily 1 hour as per surgery and discontinue morphine Remains stable clinically Continue to have NG suction Bowel sounds diminished but the patient is passing gas Likely to have NG tube removed this afternoon and clears there Electrolyte imbalance We will supplement intravenously And monitor (2) SBO (small bowel obstruction): This is a 38 yo M with H heroin abuse and depression who presents with progressive diffuse abdominal pain that began 1 week ago and was found to have small bowel obstruction and possible cecal volvulus/bascule. -Worsening abdominal pain x 1 week -CT abd/pelvis with progressively dilated small bowel loops with multiple air- fluid levels. The transverse and left colon are decompressed. The cecum appears to be positioned within the midline. The findings are consistent with a small bowel obstruction, possibly on the basis of a cecal volvulus/bascule -Evaluated by Dr. Sawant of general surgery-no immediate plan for surgery was contemplated on admission -Started on conservative management with NG tube, IV fluids, pain control, trend WBC and lactate -Condition deteriorated with increasing abdominal distention and increasing tenderness and guarding the right lower quadrant -Underwent right open extended hemicolectomy by Dr. Alaniz on 03/22 -Continue NG suction for now and give him n.p.o. -Ice chips to keep mouth moist -Likely DC NG tube tomorrow and to start clears orally at the end of the day -Await surgery evaluation (3) Heroin abuse: Last used this morning -Clonidine PRN, Ativan PRN -Patient is very lethargic and did not show any evidence of withdrawal symptoms -Will try to reduce the use of narcotics and anxiolytics DVT Ppx: Tristen talbert, ambulation Code status: FULL PCP: Unassigned Dispo: Admitted to PCU. Plan to return home once medically stable. Medically stable to be transferred to medical floor Subjective 03/24 The patient was seen and examined in telemetry unit He has been stable and complains to have abdominal pain and wants to eat Denies any chest pain and/or palpitation or any shortness of breath Does not have any nausea and/or vomiting 03/25 The patient was seen and examined in medical floor He has been feeling little bit better Wants to eat and only drank 2 soda cans without doctors knowledge Still has NG tube Review of Systems Review of Systems: All systems reviewed and unremarkable except as noted below Gastrointestinal: + abdominal pain and + bloating Physical Exam Physical Exam: Lying in bed with moderate distress secondary to abdominal pain Constitutional: + ill appearing and + cachectic; + not well nourished Eyes: PERRL, conjunctivae normal, anicteric sclerae ENMT: external ear and nose normal, oropharynx normal Mouth: + poor dentition and + small oral opening Mallampati Class: III Neck: trachea midline, no thyromegaly normal visual inspection Respiratory: + respiratory distress (Minimal shortness of breath at rest) Auscultation: + diminished lung sounds Cardiovascular: Rate/Rhythm: regular rate and regular rhythm Heart Sounds: no murmur Gastrointestinal (Abdomen): Inspection/Auscultation: + abdomen distended and normal bowel sounds (Sluggish) Percussion/Palpation: + abdomen tender (All over but mostly right lower quadrant), + guarding and + abdomen rigid Musculoskeletal: no cyanosis or clubbing, extremities motor strength 5/5 Skin: no rashes, warm and dry Neurologic: moves all extremities Psychiatric: A+Ox3, euthymic affect Affect: + anxious affect Lymphatic: no cervical or axillary lymphadenopathy Results & Data Vital Signs (Past 12 Hours) Vital Signs Temp Pulse Resp BP Pulse Ox 03/25/19 06:56 36.8 C 74 18 120/75 93 03/25/19 06:31 127/70 Laboratory Results Short CBC 03/25/19 Range/Units 07:19 WBC 4.49 L (4.8-10.8) K/uL Hgb 13.2 L (14.0-18.0) g/dL Hct 39.1 L (42-52) % Plt Count 204 (130-400) K/uL BMP 03/25/19 07:19 Sodium 139 Potassium 3.0 L Chloride 99 Carbon Dioxide 35 H BUN 17 Creatinine 0.78 Glucose 102 H Calcium 8.1 L Liver Function 03/25/19 Range/Units 07:19 Total Bilirubin 0.5 D (0.2-1) mg/dl AST 15 (15-37) U/L ALT 17 (12-78) U/L Alkaline Phosphatase 49 (45-117) U/L Albumin 2.3 L (3.4-5.0) gm/dl Medications Administered Current Inpatient Medications Clonidine HCl (Catapres) 0.1 mg PO Q8H [facility] Stop: 04/20/19 19:59 Last Admin: 03/25/19 12:12 Dose: 0.1 mg Documented by: Hydromorphone HCl (Dilaudid) 1 mg IV Q1H PRN PRN Reason: Pain Stop: 04/05/19 18:22 Last Admin: 03/25/19 12:12 Dose: 1 mg Documented by: Piperacillin Sod/Tazobactam (Sod 3.375 gm/ Dextrose) 115 mls @ 28.75 mls/hr IV Q8H [facility]; Protocol Stop: 04/01/19 01:59 Last Admin: 03/25/19 09:33 Dose: 28.7 mls/hr Documented by: Lorazepam (Ativan) 1 mg in 2 mls @ 2 mls/min IV Q3H PRN PRN Reason: Anxiety/Agitation Stop: 04/21/19 09:35 Last Admin: 03/22/19 20:32 Dose: 2 mls/min Documented by: Acetaminophen (Ofirmev) 1,000 mg in 100 mls @ 400 mls/hr IV Q8H [facility] Stop: 04/21/19 19:59 Last Admin: 03/25/19 12:51 Dose: 400 mls/hr Documented by: Thiamine HCl 100 mg/ Syringe 10 mls @ 2 mls/min IV QAM [facility] Stop: 04/23/19 15:14 Last Admin: 03/25/19 09:33 Dose: 2 mls/min Documented by: Potassium Chloride/Dextrose/Sod Cl (D5nss + 20meq Kcl) 20 meq in 1,000 mls @ 80 mls/hr IV .[id number] [facility] Stop: 03/27/19 02:14 Last Admin: 03/25/19 12:50 Dose: 80 mls/hr Documented by: Potassium Chloride (K [place] / Wtr) 10 meq in 100 mls @ 100 mls/hr IV Q1H [facility] Stop: 03/25/19 14:44 Last Admin: 03/25/19 12:57 Dose: 50 mls/hr Documented by: Ketorolac Tromethamine (Toradol) 30 mg IV Q6H PRN PRN Reason: Pain Stop: 03/27/19 18:22 Last Admin: 03/25/19 00:54 Dose: 30 mg Documented by: Miscellaneous (Remove Nicoderm Patch) 1 ea N/A HS [facility]AY Stop: 04/23/19 20:59 Last Admin: 03/24/19 21:29 Dose: 1 ea Documented by: Miscellaneous Information (Consult) 1 ea N/A UD PRN PRN Reason: Consult Stop: 04/20/19 19:41 Nicotine (Nicoderm Cq) 14 mg TD QAM [facility] Stop: 04/23/19 13:14 Last Admin: 03/25/19 09:33 Dose: 14 mg Documented by: Ondansetron HCl (Zofran) 4 mg IV Q6H PRN PRN Reason: Nausea Stop: 04/20/19 19:27 Last Admin: 03/22/19 08:43 Dose: 4 mg Documented by:
[2019-03-25] MEDS: D5NSS + 20MEQ KCL 20 MEQ/1,000 ML BAG IV SCH ×2 (12:50→23:34)
[2019-03-25] MEDS: POTASSIUM CHLORIDE / WTR 10 MEQ/100 ML PLCT IV SCH ×2 (12:57→15:49)
--- NOTE | 2019-03-25 15:13 | Surgery Progress Note ---
Date of Service pt said he went to [employer], he got 2 bottles soda drinking, he was drinking them, pt said pt did not vomiting, pt pass gas, NG tube 4000ml, but pt said most them was water, pt denies significant abdominal pain, March 25, 2019 Assessment & Plan (1) Cecal bascule: S/P right hemicolectomy, POD 2 doing fine, not pass gas yet. continue treatment repeat labs in am, will F/U 03/25/2019 3:12pm pt is stable, D/C NG tube, pt wants to pull out NG tube, clear diet will F/U Subjective pt's primary c/o today is "heroin withdrawal". still having abdominal pain but improved from yesterday. no bm. +nausea. Physical Exam Constitutional: WD/WN, vitals as above Neck: trachea midline, no thyromegaly Respiratory: normal respiratory effort, lungs clear to auscultation normal respiratory effort Cardiovascular: RRR, no murmur, no edema Rate/Rhythm: regular rate and regular rhythm Gastrointestinal (Abdomen): normal bowel sounds, soft, nontender, no hepatosplenomegaly Percussion/Palpation: abdomen soft Musculoskeletal: no cyanosis or clubbing, extremities motor strength 5/5 Neurologic: patellar DTR's 2+ bilat, sensation intact Psychiatric: Orientation: alert and oriented x 3 Results & Data Vital Signs (Past 12 Hours) Vital Signs Temp Pulse Resp BP Pulse Ox 03/25/19 06:56 36.8 C 74 18 120/75 93 03/25/19 06:31 127/70 Laboratory Results Abnormal lab results 03/25/19 03/25/19 Range/Units 07:19 07:19 WBC 4.49 L (4.8-10.8) K/uL RBC 4.34 L (4.7-6.1) M/uL Hgb 13.2 L (14.0-18.0) g/dL Hct 39.1 L (42-52) % MPV 11.5 H (7.4-10.4) fL Lymph # (Auto) 1.09 L (1.2-3.4) K/uL [place] # (Auto) 1.00 H (0.11-0.59) K/uL Potassium 3.0 L (3.5-5.1) mmol/L Carbon Dioxide 35 H (21-32) mmol/L BUN/Creatinine Ratio 22.2 H (10-20) Glucose 102 H (70-99) mg/dl Calcium 8.1 L (8.5-10.1) mg/dl Total Protein 5.9 L (6.4-8.2) gm/dl Albumin 2.3 L (3.4-5.0) gm/dl Albumin/Globulin Ratio 0.6 L (0.9-2)
[2019-03-26] MEDS: PIPERACILLIN/TAZOBACTAM 3.375 GM in DEXTROSE 5% 100 ML IV SCH ×3 (01:08→17:52)
[2019-03-26] MEDS: HYDROmorphone INJ 1 MG/ML SYRINGE IV PRN ×7 (01:08→11:10)
[2019-03-26] MEDS: ACETAMINOPHEN 1,000 MG/100 ML VIAL IV SCH ×3 (04:40→20:06)
[2019-03-26] MEDS: cloNIDine HCl 0.1 MG TAB PO SCH ×3 (04:41→20:06)
[2019-03-26 06:20] LABS: BUN Creatinine Ratio 19.1 (10-20); Calcium 8.2 mg/dl (8.5-10.1); Creatinine Clr Calc Pharmacy 169.4 ml/min; Est GFR (African American) 140.6; Est GFR (Non-African American) 121.3; Magnesium 2.2 mg/dl (1.8-2.4); Phosphorus 2.7 mg/dl (2.5-4.9); Potassium 3.1 mmol/L (3.5-5.1)
[2019-03-26 07:26] LABS: Hematocrit (blood only) 39.6 % (42-52); Mean Corpuscular Hgb Conc 32.8 g/dL (32-36); Mean Corpuscular Volume 91.9 fL (80-100); Mean Platelet Volume 12.1 fL (7.4-10.4); Platelet Count 233 K/uL (130-400); RDW Coefficient of Variation 12.3 % (11.5-14.5); RDW Standard Deviation 41.9 fL (36.4-46.3); Red Blood Count 4.31 M/uL (4.7-6.1); White Blood Count 6.31 K/uL (4.8-10.8)
[2019-03-26 07:27] LABS: Basophils # (auto) 0.03 K/uL (0-0.2); Basophils % (auto) 0.5 %; Eosinophils # (auto) 0.47 K/uL (0-0.5); Eosinophils % (auto) 7.4 %; Immature Granulocytes # (auto) 0.04 K/uL (0.00-0.02); Immature Granulocytes % (auto) 0.6 %; Lymphocytes # (auto) 1.58 K/uL (1.2-3.4); Monocytes # (auto) 1.04 K/uL (0.11-0.59); Monocytes % (auto) 16.5 %; Neutrophils # (auto) 3.15 K/uL (1.4-6.5)
[2019-03-26] MEDS: NICOTINE 14 MG/24 HR PATCH TD SCH (08:23)
[2019-03-26] MEDS: THIAMINE HCL 100 MG in SYRINGE 9 ML IV SCH (08:23)
[2019-03-26] MEDS ORDERED: POTASSIUM CHLORIDE 20 MEQ TABCR PO STA (09:11)
--- NOTE | 2019-03-26 09:12 | Surgery Progress Note ---
Date of Service March 26, 2019 Assessment & Plan (1) Cecal bascule: pod 4 doing well Spoke with Dr. Raymundo regarding post op pain/heroin withdrawl. Will make NPO for now and anesthesia to plan for KATHARINE block. can advance to soft diet after block completed. will step down to [place] after KATHARINE done will refer to out-pt Suboxone clinics at time of discharge. soc services for d/c planning. (2) Heroin abuse: Subjective doing as well as we could expect. +BM's times 2. "hungry". requiring dilaudid for pain Physical Exam Physical Exam: alert. nad. appears comfortable. abd: soft. expected tenderness. wound looks good. Results & Data Vital Signs (Past 12 Hours) Vital Signs Temp Pulse Resp BP Pulse Ox 03/26/19 07:06 36.9 C 73 18 123/74 94 03/25/19 23:22 36.9 C 68 18 113/69 97
[2019-03-26] MEDS ORDERED: MIDAZOLAM HCL 1 MG/ML 2ML VIAL ONE (11:44)
[2019-03-26] MEDS ORDERED: LIDOCAINE HCL 2% MPF (LOCAL) 5 ML VIAL INFIL ONE (11:44)
[2019-03-26] MEDS ORDERED: PROPOFOL IV EMULSION 10 MG/ML 20 ML VIAL IV ONE (11:44)
[2019-03-26] MEDS ORDERED: BUPIVACAINE 0.5 % 5 MG/1 ML PF 10ML VIAL ONE (11:54)
[2019-03-26] MEDS: D5NSS + 20MEQ KCL 20 MEQ/1,000 ML BAG IV SCH (12:05)
--- NOTE | 2019-03-26 12:46 | Anesthesiology Consultation ---
Date of Service March 26, 2019 Assessment & Plan Chart Review Chart Review: Acceptable Risk for Surgery and Patient NOT seen in Pre Admission Testing Consults Requested none History Surgery Operation Date: 03/22/19 13:20 Proposed Procedures p Right Open Hemicolectomy - Nick Alaniz DO Height/Weight Height: 6 ft 4 in Weight: 81.7 kg Allergies Allergy/AdvReac Type Severity Reaction Status Date / Time No Known Allergies Allergy Verified 03/21/19 16:23 Medications Home Medications Medication Instructions Recorded Confirmed Last Taken No Known Home Medications 03/20/19 03/21/19 Unknown Active Medications Generic Name Dose Route Start Last Admin Trade Name Freq PRN Reason Stop Dose Admin Clonidine HCl 0.1 mg 03/21/19 20:00 03/26/19 12:09 Catapres PO 04/20/19 19:59 0.1 mg Q8H [facility]AY Administration Hydromorphone HCl 1 mg 03/22/19 18:23 03/26/19 11:10 Dilaudid IV 04/05/19 18:22 1 mg Q1H PRN Administration Pain Piperacillin Sod/Tazobactam 115 mls @ 28.75 mls/hr 03/22/19 02:00 03/26/19 09:42 Sod 3.375 gm/ Dextrose IV 04/01/19 01:59 28.8 mls/hr Q8H [facility]AY Administration Protocol Lorazepam 1 mg in 2 mls @ 2 mls/min 03/22/19 09:36 03/22/19 20:32 Ativan IV 04/21/19 09:35 2 mls/min Q3H PRN Administration Anxiety/Agitation Acetaminophen 1,000 mg in 100 mls @ 400 mls/hr 03/22/19 20:00 03/26/19 12:07 Ofirmev IV 04/21/19 19:59 400 mls/hr Q8H [facility]AY Administration Thiamine HCl 100 mg/ Syringe 10 mls @ 2 mls/min 03/24/19 15:15 03/26/19 08:23 IV 04/23/19 15:14 2 mls/min QAM [facility]AY Administration Potassium Chloride/Dextrose/Sod Cl 20 meq in 1,000 mls @ 80 mls/hr 03/25/19 12:45 03/26/19 12:05 D5nss + 20meq Kcl IV 03/27/19 02:14 80 mls/hr .[id number] FAY Administration Ketorolac Tromethamine 30 mg 03/22/19 18:23 03/25/19 17:03 Toradol IV 03/27/19 18:22 30 mg Q6H PRN Administration Pain Miscellaneous 1 ea 03/24/19 21:00 03/25/19 20:50 Remove Nicoderm Patch N/A 04/23/19 20:59 1 ea HS FAY Administration Nicotine 14 mg 03/24/19 13:15 03/26/19 08:23 Nicoderm Cq TD 04/23/19 13:14 14 mg QAM FAY Administration Ondansetron HCl 4 mg 03/21/19 19:28 03/22/19 08:43 Zofran IV 04/20/19 19:27 4 mg Q6H PRN Administration Nausea NPO Date Last Intake of Fluids: 03/26/19 Time Last Intake of Fluids: 08:30 Last Intake of Fluids Comment: clears Date Last Intake of Solids: 03/21/19 Time Last Intake of Solids: 20:00 Past Medical History Medical History Heroin abuse (Chronic) Cecal bascule (Acute) Depression (Chronic) MRSA infection (Resolved) Exercise / Class Metabolic Activity II 4-5 Yardwork/Stairs/Walk up hill Past Family History Family History Other No pertinent family history Past Surgical History Surgical History H/O hemicolectomy Past Anesthesia History No Hx of Anesthesia Complications and No Family Hx of Anesthesia Complications History of PONV No Hx of PONV and No Hx of Motion Sickness Social History Smoking Status: Current every day smoker tobacco type: cigarettes Smoking cigarettes per day: 20 Hx Alcohol Use: No Hx Substance Use: Yes substance use type: heroin Last Used Substance: Days (ago) Last Used Substance Other:: 03/22/19 Physical Exam Vital Signs Last Vital Signs Temp 36.9 C 03/26/19 07:06 Pulse 73 03/26/19 07:06 Resp 18 03/26/19 07:06 BP 110/69 03/26/19 12:09 Pulse Ox 94 03/26/19 07:06 Testing Laboratory Results 03/26/19 06:13 03/26/19 05:21 Chest X-Ray Date: 03/20/19 Findings: + NAD
--- NOTE | 2019-03-26 13:33 | Anesthesiology Progress Note ---
Date of Service March 26, 2019 Anesthesia Post Procedure Vital Signs Vital Signs: Temp Pulse Resp BP Pulse Ox 03/26/19 12:09 110/69 03/26/19 07:06 36.9 C 73 18 123/74 94 03/25/19 23:22 36.9 C 68 18 113/69 97 03/25/19 19:50 75 130/81 97 03/25/19 15:15 36.7 C 89 17 135/86 98 Pain Intensity Abdomen: Pain Intensity: 10 Transfer of Care Handoff Completed per policy Notes Mental Status: alert / awake / arousable and participated in evaluation Patient Amnestic to Procedure: Yes Nausea / Vomiting: adequately controlled Pain: adequately controlled Airway Patency, RR, SpO2: stable & adequate BP & HR: stable & adequate Hydration State: stable & adequate Anesthetic Complications: no major complications apparent and Pt Satisfied with anesthetic care
--- NOTE | 2019-03-26 13:39 | Anesthesiology Progress Note ---
Date of Service March 26, 2019 Assessment & Plan (1) Inadequate pain control: Bilateral TAPS blocks performed in recovery area by myself and sedation by [facility]. See below note for details. Peripheral Nerve Block Date and time of procedure: 03/25/2019. 1255 Indication: Post-operative pain control, difficult to control pain post surgery Consent: Informed consent obtained from the patient. The inherent risks, expected benefits, treatment alternatives, as well as the technical aspects of t he procedure were discussed with the patient and a full explanation was given. Patient was given the opportunity to ask questions, which were answered to their satisfaction. Time Out: A time-out was performed verifying correct patient with two identifiers, procedure, site, positioning, and special equipment (if needed). Monitors Attached: EKG, BP, Pulse Oximetry, CO2 Pre-Medication for procedure: [4] mg Midazolam [40] mg Propofol Position: Supine Prep: Chloraprep x2 each side, sterile drape, sterile procedures used (including sterile ultrasound cover). Side: Bilateral Local Anesthetic: Block: Single Shot on each side Needle: 90mm stimuquick needle Technique: US Guided Anesthetic: 10ml 0.5% bupivicaine with 5ml 1.33% exparel per each side (30ml total). Attempts: 1 each Procedure details: During placement, needle was aspirated every 5 ml without heme. No paresthesias noted. No signs or symptoms of local anesthetic toxicity. Vital signs stable throughout. Post Procedure: Patient tolerated the procedure well without apparent complications. Present on Admission?: Yes Subjective Patient has difficult to control pain and planned for bilateral TAPS blocks per the recommendation of the chronic/acute pain team. Physical Exam Vital Signs: Last Vital Signs Temp 36.9 C 03/26/19 07:06 Pulse 73 03/26/19 07:06 Resp 18 03/26/19 07:06 BP 110/69 03/26/19 12:09 Pulse Ox 94 03/26/19 07:06 Results & Data Medications Administered Clonidine HCl (Catapres) 0.1 mg PO Q8H FAY Stop: 04/20/19 19:59 Last Admin: 03/26/19 12:09 Dose: 0.1 mg Documented by: [id number] Admin: 03/26/19 04:41 Dose: 0.1 mg Documented by: [id number] Admin: 03/25/19 19:51 Dose: 0.1 mg Documented by: [id number] Admin: 03/25/19 12:12 Dose: 0.1 mg Documented by: [id number] Admin: 03/25/19 04:48 Dose: 0.1 mg Documented by: [id number] Admin: 03/24/19 21:29 Dose: 0.1 mg Documented by: [id number] Admin: 03/24/19 13:22 Dose: 0.1 mg Documented by: [id number] Admin: 03/24/19 03:45 Dose: 0.1 mg Documented by: [id number] Admin: 03/23/19 20:20 Dose: 0.1 mg Documented by: [id number] Admin: 03/23/19 12:31 Dose: Not Given Documented by: [id number] Admin: 03/23/19 04:48 Dose: 0.1 mg Documented by: [id number] Admin: 03/22/19 20:30 Dose: 0.1 mg Documented by: [id number] Admin: 03/22/19 12:07 Dose: 0.1 mg Documented by: [id number] Admin: 03/22/19 05:27 Dose: Not Given Documented by: [id number] Admin: 03/21/19 23:02 Dose: Not Given Documented by: [id number] Hydromorphone HCl (Dilaudid) 1 mg IV Q1H PRN PRN Reason: Pain Stop: 04/05/19 18:22 Last Admin: 03/26/19 11:10 Dose: 1 mg Documented by: [id number] Admin: 03/26/19 09:39 Dose: 1 mg Documented by: [id number] Admin: 03/26/19 08:18 Dose: 1 mg Documented by: [id number] Admin: 03/26/19 06:23 Dose: 1 mg Documented by: [id number] Admin: 03/26/19 04:43 Dose: 1 mg Documented by: [id number] Admin: 03/26/19 03:16 Dose: 1 mg Documented by: [id number] Admin: 03/26/19 01:08 Dose: 1 mg Documented by: [id number] Admin: 03/25/19 23:33 Dose: 1 mg Documented by: [id number] Admin: 03/25/19 21:36 Dose: 1 mg Documented by: [id number] Admin: 03/25/19 18:56 Dose: 1 mg Documented by: [id number] Admin: 03/25/19 15:58 Dose: 1 mg Documented by: [id number] Admin: 03/25/19 14:05 Dose: 1 mg Documented by: [id number] Admin: 03/25/19 12:12 Dose: 1 mg Documented by: [id number] Admin: 03/25/19 09:53 Dose: 1 mg Documented by: [id number] Admin: 03/25/19 06:38 Dose: 1 mg Documented by: [id number] Admin: 03/25/19 04:53 Dose: 1 mg Documented by: [id number] Admin: 03/25/19 03:10 Dose: 1 mg Documented by: [id number] Admin: 03/25/19 01:39 Dose: 1 mg Documented by: [id number] Admin: 03/24/19 23:32 Dose: 1 mg Documented by: [id number] Admin: 03/24/19 22:13 Dose: 1 mg Documented by: [id number] Admin: 03/24/19 20:19 Dose: 1 mg Documented by: [id number] Admin: 03/24/19 18:05 Dose: 1 mg Documented by: [id number] Admin: 03/24/19 11:42 Dose: 1 mg Documented by: [id number] Admin: 03/24/19 09:31 Dose: 1 mg Documented by: [id number] Admin: 03/24/19 07:27 Dose: 1 mg Documented by: [id number] Admin: 03/24/19 03:38 Dose: 1 mg Documented by: [id number] Admin: 03/24/19 01:45 Dose: 1 mg Documented by: [id number] Admin: 03/23/19 22:12 Dose: 1 mg Documented by: [id number] Admin: 03/23/19 18:28 Dose: 1 mg Documented by: [id number] Admin: 03/23/19 15:23 Dose: 1 mg Documented by: [id number] Admin: 03/23/19 11:28 Dose: 1 mg Documented by: [id number] Admin: 03/23/19 07:23 Dose: 1 mg Documented by: [id number] Admin: 03/23/19 05:12 Dose: 1 mg Documented by: [id number] Admin: 03/23/19 01:25 Dose: 1 mg Documented by: [id number] Piperacillin Sod/Tazobactam (Sod 3.375 gm/ Dextrose) 115 mls @ 28.75 mls/hr IV Q8H [facility]; Protocol Stop: 04/01/19 01:59 Last Admin: 03/26/19 09:42 Dose: 28.8 mls/hr Documented by: [id number] Infusion: 03/26/19 04:45 Dose: 0 mls/hr Documented by: [id number] Admin: 03/26/19 01:08 Dose: 28.8 mls/hr Documented by: [id number] Infusion: 03/25/19 21:43 Dose: 0 mls/hr Documented by: [id number] Admin: 03/25/19 17:43 Dose: 28.8 mls/hr Documented by: [id number] Infusion: 03/25/19 13:54 Dose: 0 mls/hr Documented by: [id number] Admin: 03/25/19 09:33 Dose: 28.7 mls/hr Documented by: [id number] Infusion: 03/25/19 04:59 Dose: 0 mls/hr Documented by: [id number] Admin: 03/25/19 00:54 Dose: 28.8 mls/hr Documented by: [id number] Infusion: 03/24/19 22:14 Dose: 0 mls/hr Documented by: [id number] Admin: 03/24/19 18:05 Dose: 28.8 mls/hr Documented by: [id number] Infusion: 03/24/19 13:44 Dose: 0 mls/hr Documented by: [id number] Infusion: 03/24/19 13:42 Dose: 0 mls/hr Documented by: [id number] Admin: 03/24/19 09:44 Dose: 28.8 mls/hr Documented by: [id number] Infusion: 03/24/19 05:59 Dose: 0 mls/hr Documented by: [id number] Admin: 03/24/19 01:45 Dose: 28.8 mls/hr Documented by: [id number] Infusion: 03/23/19 22:13 Dose: 0 mls/hr Documented by: [id number] Admin: 03/23/19 17:31 Dose: 30 mls/hr Documented by: [id number] Infusion: 03/23/19 14:48 Dose: 0 mls/hr Documented by: [id number] Admin: 03/23/19 10:27 Dose: 30 mls/hr Documented by: [id number] Infusion: 03/23/19 06:39 Dose: 0 mls/hr Documented by: [id number] Admin: 03/23/19 02:28 Dose: 28.8 mls/hr Documented by: [id number] Infusion: 03/23/19 00:08 Dose: 0 mls/hr Documented by: [id number] Admin: 03/22/19 18:27 Dose: 30 mls/hr Documented by: [id number] Infusion: 03/22/19 13:09 Dose: 0 mls/hr Documented by: [id number] Admin: 03/22/19 09:19 Dose: 28.8 mls/hr Documented by: [id number] Admin: 03/22/19 01:30 Dose: Not Given Documented by: [id number] Lorazepam (Ativan) 1 mg in 2 mls @ 2 mls/min IV Q3H PRN PRN Reason: Anxiety/Agitation Stop: 04/21/19 09:35 Last Admin: 03/22/19 20:32 Dose: 2 mls/min Documented by: [id number] Admin: 03/22/19 12:12 Dose: 2 mls/min Documented by: [id number] Acetaminophen (Ofirmev) 1,000 mg in 100 mls @ 400 mls/hr IV Q8H [facility]AY Stop: 04/21/19 19:59 Last Admin: 03/26/19 12:07 Dose: 400 mls/hr Documented by: [id number] Infusion: 03/26/19 04:52 Dose: 0 mls/hr Documented by: [id number] Admin: 03/26/19 04:40 Dose: 400 mls/hr Documented by: [id number] Infusion: 03/25/19 20:11 Dose: 0 mls/hr Documented by: [id number] Admin: 03/25/19 19:53 Dose: 400 mls/hr Documented by: [id number] Infusion: 03/25/19 13:55 Dose: 0 mls/hr Documented by: [id number] Admin: 03/25/19 12:51 Dose: 400 mls/hr Documented by: [id number] Infusion: 03/25/19 03:28 Dose: 0 mls/hr Documented by: [id number] Admin: 03/25/19 03:10 Dose: 400 mls/hr Documented by: [id number] Infusion: 03/24/19 20:24 Dose: 0 mls/hr Documented by: [id number] Admin: 03/24/19 20:09 Dose: 400 mls/hr Documented by: [id number] Infusion: 03/24/19 13:42 Dose: 0 mls/hr Documented by: [id number] Admin: 03/24/19 13:21 Dose: 400 mls/hr Documented by: [id number] Infusion: 03/24/19 05:03 Dose: 0 mls/hr Documented by: [id number] Admin: 03/24/19 04:38 Dose: 400 mls/hr Documented by: [id number] Admin: 03/23/19 20:20 Dose: Not Given Documented by: [id number] Infusion: 03/23/19 12:55 Dose: 0 mls/hr Documented by: [id number] Admin: 03/23/19 12:35 Dose: 400 mls/hr Documented by: [id number] Infusion: 03/23/19 05:13 Dose: 0 mls/hr Documented by: [id number] Admin: 03/23/19 04:48 Dose: 400 mls/hr Documented by: [id number] Infusion: 03/22/19 20:48 Dose: 0 mls/hr Documented by: [id number] Admin: 03/22/19 20:24 Dose: 400 mls/hr Documented by: [id number] Thiamine HCl 100 mg/ Syringe 10 mls @ 2 mls/min IV QAM [facility]AY Stop: 04/23/19 15:14 Last Admin: 03/26/19 08:23 Dose: 2 mls/min Documented by: [id number] Admin: 03/25/19 09:33 Dose: 2 mls/min Documented by: [id number] Admin: 03/24/19 16:38 Dose: 2 mls/min Documented by: [id number] Potassium Chloride/Dextrose/Sod Cl (D5nss + 20meq Kcl) 20 meq in 1,000 mls @ 80 mls/hr IV .[id number] FAY Stop: 03/27/19 02:14 Last Admin: 03/26/19 12:05 Dose: 80 mls/hr Documented by: [id number] Infusion: 03/26/19 12:04 Dose: 80 mls/hr Documented by: [id number] Admin: 03/25/19 23:34 Dose: 80 mls/hr Documented by: [id number] Infusion: 03/25/19 23:34 Dose: 80 mls/hr Documented by: [id number] Admin: 03/25/19 12:50 Dose: 80 mls/hr Documented by: [id number] Ketorolac Tromethamine (Toradol) 30 mg IV Q6H PRN PRN Reason: Pain Stop: 03/27/19 18:22 Last Admin: 03/25/19 17:03 Dose: 30 mg Documented by: [id number] Admin: 03/25/19 00:54 Dose: 30 mg Documented by: [id number] Admin: 03/24/19 15:58 Dose: 30 mg Documented by: [id number] Admin: 03/24/19 06:51 Dose: 30 mg Documented by: [id number] Admin: 03/23/19 22:56 Dose: 30 mg Documented by: [id number] Miscellaneous (Remove Nicoderm Patch) 1 ea N/A HS [facility] Stop: 04/23/19 20:59 Last Admin: 03/25/19 20:50 Dose: 1 ea Documented by: [id number] Admin: 03/24/19 21:29 Dose: 1 ea Documented by: [id number] [facility] ([facility] Cq) [facility] [place] Stop: 04/23/19 13:14 Last Admin: 03/26/19 08:23 Dose: 14 mg Documented by: [id number] Admin: 03/25/19 09:33 Dose: 14 mg Documented by: [id number] Admin: 03/24/19 14:11 Dose: 14 mg Documented by: [id number] Ondansetron HCl (Zofran) 4 mg IV Q6H PRN PRN Reason: Nausea Stop: 04/20/19 19:27 Last Admin: 03/22/19 08:43 Dose: 4 mg Documented by: [id number]
[2019-03-26] MEDS ORDERED: Nursing to Pharmacy Communication ONE (14:22)
[2019-03-26] MEDS ORDERED: HYDROCODONE/ACETAMOPHEN 5/325MG TAB PO PRN ×2 (14:24→14:26)
[2019-03-26] MEDS: HYDROmorphone INJ 0.5 MG/0.5 ML SYR IV PRN ×4 (15:51→22:09)
[2019-03-26] MEDS: KETOROLAC 30 MG/ML VIAL IV PRN (16:18)
--- NOTE | 2019-03-26 16:59 | Hospitalist Progress Note ---
Date of Service March 26, 2019 Assessment & Plan (1) Cecal bascule: Causing intestinal obstruction Possibly ischemic Appreciate surgery input and recommendation He went for exploratory laparotomy this afternoon Status post right open extended hemicolectomy involving terminal ileum, right colon and portion of transverse colon POD #3 Management as per surgery We will continue Dilaudid 1 mg intravenously daily 1 hour as per surgery and discontinue morphine Remains stable clinically Continue to have NG suction Bowel sounds diminished but the patient is passing gas NG tube has been discontinued He has been tolerating clears orally Bowel is moving which is liquid Electrolyte imbalance We will supplement intravenously We will give potassium supplement (2) SBO (small bowel obstruction): This is a 38 yo M with PMH heroin abuse and depression who presents with progressive diffuse abdominal pain that began 1 week ago and was found to have small bowel obstruction and possible cecal volvulus/bascule. -Worsening abdominal pain x 1 week -CT abd/pelvis with progressively dilated small bowel loops with multiple air- fluid levels. The transverse and left colon are decompressed. The cecum appears to be positioned within the midline. The findings are consistent with a small bowel obstruction, possibly on the basis of a cecal volvulus/bascule -Evaluated by Dr. Sawant of general surgery-no immediate plan for surgery was contemplated on admission -Started on conservative management with NG tube, IV fluids, pain control, trend WBC and lactate -Condition deteriorated with increasing abdominal distention and increasing tenderness and guarding the right lower quadrant -Underwent right open extended hemicolectomy by Dr. Alaniz on 03/22 -Continue NG suction for now and give him n.p.o. -Ice chips to keep mouth moist -Likely DC NG tube tomorrow and to start clears orally at the end of the day -As above (3) Heroin abuse: Last used this morning -Clonidine PRN, Ativan PRN -Patient is very lethargic and did not show any evidence of withdrawal symptoms -Will try to reduce the use of narcotics and anxiolytics Has been having symptoms predominantly related to withdrawal Requiring recurrent intravenous Dilaudid to control pain Appreciate pain therapy input and recommendation Status post abdominal nerve block to control abdominal pain DVT Ppx: Tristen talbert, ambulation Code status: FULL PCP: Unassigned Dispo: Admitted to PCU. Plan to return home once medically stable. Subjective 03/24 The patient was seen and examined in telemetry unit He has been stable and complains to have abdominal pain and wants to eat Denies any chest pain and/or palpitation or any shortness of breath Does not have any nausea and/or vomiting 03/25 The patient was seen and examined in medical floor He has been feeling little bit better Wants to eat and only drank 2 soda cans without doctors knowledge Still has NG tube 03/26 The patient was seen and examined the medical floor He complains to have withdrawal symptoms from heroin Still has considerable abdominal pain NG tube has been discontinued and he has been taking clears orally Review of Systems Review of Systems: All systems reviewed and unremarkable except as noted below Constitutional: + fever, + fatigue, + malaise and + weakness Eyes: Closed Respiratory: + dyspnea (Minimal shortness of breath at rest) Gastrointestinal: + abdominal pain and + bloating Neurologic: + problem reported (Unsteadiness due to withdrawal symptoms) Physical Exam Physical Exam: Looks ill in bed with minimal distress Constitutional: + ill appearing and + cachectic; + not well nourished Eyes: PERRL, conjunctivae normal, anicteric sclerae ENMT: external ear and nose normal, oropharynx normal Mouth: + poor dentition and + small oral opening Mallampati Class: III Neck: trachea midline, no thyromegaly normal visual inspection Respiratory: + respiratory distress (Minimal shortness of breath at rest) Auscultation: + diminished lung sounds Cardiovascular: Rate/Rhythm: regular rate and regular rhythm Heart Sounds: no murmur Gastrointestinal (Abdomen): Inspection/Auscultation: + abdomen distended and normal bowel sounds (Sluggish) Percussion/Palpation: + abdomen tender (All over but mostly right lower quadrant), + guarding and + abdomen rigid Musculoskeletal: no cyanosis or clubbing, extremities motor strength 5/5 Skin: no rashes, warm and dry Neurologic: moves all extremities Psychiatric: A+Ox3, euthymic affect Affect: + anxious affect Lymphatic: no cervical or axillary lymphadenopathy Results & Data Vital Signs (Past 12 Hours) Vital Signs Temp Pulse Pulse Resp BP Pulse Ox 03/26/19 15:45 36.8 C 77 18 130/83 96 03/26/19 14:25 79 16 124/81 94 03/26/19 13:56 36.7 C 76 16 128/85 97 03/26/19 12:09 110/69 03/26/19 07:06 36.9 C 73 18 123/74 94 Laboratory Results Short CBC 03/26/19 03/26/19 Range/Units 05:21 06:13 WBC Cancelled 6.31 Hgb Cancelled 13.0 L Hct Cancelled 39.6 L Plt Count Cancelled 233 BMP 03/26/19 05:21 Sodium 139 Potassium 3.1 L Chloride 101 Carbon Dioxide 31 BUN 13 Creatinine 0.69 Glucose 99 Calcium 8.2 L Medications Administered Current Inpatient Medications Hydrocodone Bitart/Acetaminophen ([place] 5/325) 1 tab PO Q4 PRN PRN Reason: Pain Stop: 04/09/19 14:23 Hydrocodone Bitart/Acetaminophen ([place] 5/325) 2 tab PO Q4 PRN PRN Reason: Pain Stop: 04/09/19 14:25 Clonidine HCl (Catapres) 0.1 mg PO Q8H [facility] Stop: 04/20/19 19:59 Last Admin: 03/26/19 12:09 Dose: 0.1 mg Documented by: Hydromorphone HCl (Dilaudid) 0.5 mg IV Q2H PRN PRN Reason: BREAKTHROUGH PAIN Stop: 04/09/19 14:38 Last Admin: 03/26/19 15:51 Dose: 0.5 mg Documented by: Piperacillin Sod/Tazobactam (Sod 3.375 gm/ Dextrose) 115 mls @ 28.75 mls/hr IV Q8H [facility]; Protocol Stop: 04/01/19 01:59 Last Infusion: 03/26/19 13:42 Dose: Infused Documented by: Lorazepam (Ativan) 1 mg in 2 mls @ 2 mls/min IV Q3H PRN PRN Reason: Anxiety/Agitation Stop: 04/21/19 09:35 Last Admin: 03/22/19 20:32 Dose: 2 mls/min Documented by: Acetaminophen (Ofirmev) 1,000 mg in 100 mls @ 400 mls/hr IV Q8H [facility] Stop: 04/21/19 19:59 Last Infusion: 03/26/19 12:22 Dose: Infused Documented by: Thiamine HCl 100 mg/ Syringe 10 mls @ 2 mls/min IV QAM [facility] Stop: 04/23/19 15:14 Last Admin: 03/26/19 08:23 Dose: 2 mls/min Documented by: Potassium Chloride/Dextrose/Sod Cl (D5nss + 20meq Kcl) 20 meq in 1,000 mls @ 80 mls/hr IV .[id number] FAY Stop: 03/27/19 02:14 Last Admin: 03/26/19 12:05 Dose: 80 mls/hr Documented by: Ketorolac Tromethamine (Toradol) 30 mg IV Q6H PRN PRN Reason: Pain Stop: 03/27/19 18:22 Last Admin: 03/26/19 16:18 Dose: 30 mg Documented by: Miscellaneous (Remove Nicoderm Patch) 1 ea N/A HS [facility] Stop: 04/23/19 20:59 Last Admin: 03/25/19 20:50 Dose: 1 ea Documented by: Miscellaneous Information (Consult) 1 ea N/A UD PRN PRN Reason: Consult Stop: 04/01/19 01:59 Nicotine (Nicoderm Cq) 14 mg TD QAM [facility] Stop: 04/23/19 13:14 Last Admin: 03/26/19 08:23 Dose: 14 mg Documented by: Ondansetron HCl (Zofran) 4 mg IV Q6H PRN PRN Reason: Nausea Stop: 04/20/19 19:27 Last Admin: 03/22/19 08:43 Dose: 4 mg Documented by:
[2019-03-27] MEDS: HYDROmorphone INJ 0.5 MG/0.5 ML SYR IV PRN ×6 (00:09→10:39)
[2019-03-27] MEDS: PIPERACILLIN/TAZOBACTAM 3.375 GM in DEXTROSE 5% 100 ML IV SCH ×2 (02:10→09:18)
[2019-03-27] MEDS: ACETAMINOPHEN 1,000 MG/100 ML VIAL IV SCH (03:55)
[2019-03-27] MEDS: cloNIDine HCl 0.1 MG TAB PO SCH (04:03)
[2019-03-27 06:33] LABS: Basophils # (auto) 0.02 K/uL (0-0.2); Basophils % (auto) 0.3 %; Eosinophils # (auto) 0.61 K/uL (0-0.5); Eosinophils % (auto) 10.2 %; Hematocrit (blood only) 43.7 % (42-52); Hemoglobin 14.9 g/dL (14.0-18.0); Immature Granulocytes # (auto) 0.03 K/uL (0.00-0.02); Immature Granulocytes % (auto) 0.5 %; Lymphocytes # (auto) 1.61 K/uL (1.2-3.4); Lymphocytes % (auto) 26.9 %; Mean Corpuscular Hgb Conc 34.1 g/dL (32-36); Mean Platelet Volume 11.2 fL (7.4-10.4); Monocytes # (auto) 0.89 K/uL (0.11-0.59); Monocytes % (auto) 14.9 %; Neutrophils # (auto) 2.82 K/uL (1.4-6.5); Neutrophils % (auto) 47.2 %; Platelet Count 312 K/uL (130-400); RDW Coefficient of Variation 12.5 % (11.5-14.5); RDW Standard Deviation 40.1 fL (36.4-46.3); Red Blood Count 4.91 M/uL (4.7-6.1); White Blood Count 5.98 K/uL (4.8-10.8)
[2019-03-27 07:07] LABS: BUN Creatinine Ratio 18.9 (10-20); Calcium 8.7 mg/dl (8.5-10.1); Creatinine Clr Calc Pharmacy 174.4 ml/min; Est GFR (African American) 142.3; Est GFR (Non-African American) 122.8; Magnesium 1.9 mg/dl (1.8-2.4); Phosphorus 3.1 mg/dl (2.5-4.9); Potassium 4.1 mmol/L (3.5-5.1)
--- NOTE | 2019-03-27 07:11 | Surgery Progress Note ---
Date of Service March 27, 2019 Assessment & Plan (1) Cecal bascule: doing well pod 5 ok for d/c instructions given list of suboxone clinics given. pt agrees to f/u discussed with Dr. Raymundo. will send home on Mgv. KATHARINE block successful yesterday. (2) Heroin abuse: Subjective pt doing ok. seema diet. multiple BM's overnight. no new complaints. Physical Exam Physical Exam: alert/oriented. nad. abd: soft. wound looks good/c/d/i. nondistended. Results & Data Vital Signs (Past 12 Hours) Vital Signs Temp Pulse Pulse Resp BP Pulse Ox 03/27/19 07:00 37.2 C 78 16 138/86 97 03/27/19 04:02 77 132/88 03/26/19 23:30 37 C 76 16 113/77 96 03/26/19 20:05 121/79
[2019-03-27] MEDS: THIAMINE HCL 100 MG in SYRINGE 9 ML IV SCH (09:08)
[2019-03-27] MEDS: NICOTINE 14 MG/24 HR PATCH TD SCH (09:08)
--- NOTE | 2019-03-27 17:37 | Discharge Summary ---
Date of Service March 27, 2019 Admission HPI Per Admitting Provider This is a 38 yo M with H heroin abuse and depression who presents with progressive diffuse abdominal pain that began 1 week ago. States that he has not had a normal bowel movement in about a week but has passed small amounts of stool. Has history of constipation in setting of heroin use. Was evaluated yesterday in the ED for RLQ pain and had CT abd/pelvis that showed distended cecum located in left upper quadrant due to possible mobile cecal syndrome or cecal bascule/volvulus. No evidence of appendicitis. Patient had no correlating pain in that area and was discharged home. Returns this afternoon with more diff use abdominal pain, nausea and multiple bouts of emesis. Last used heroin this morning. Did not have a bowel movement despite taking 4 laxatives prior to arrival. Patient states that he feels antsy and is starting to withdrawal. Denies fever, chills, headache, lightheadedness, chest pain, palpitations, shortness of breath, dysuria or diarrhea. In ED, patient is hypertensive at 155/100. Leukocytosis of 22.35k. Lactate elevated at 4.9. CT abd/pelvis today with progressively dilated small bowel loops with multiple air-fluid levels. The transverse and left colon are decompressed. The cecum appears to be positioned within the midline. The findings are consistent with a small bowel obstruction, possibly on the basis of a cecal volvulus/bascule. Was evaluated by surgical service in ED. Dr. Sawant does not feel this is an acute abdomen and no emergent surgical intervention is needed at this time. Will conservatively manage with NG tube, IV fluids, trend WBC and lactate. Admission Exam Per Admitting Provider Physical Exam: General Appearance: WD/WN, thin male in acute distress moving around in bed, rocking back and forth Head: normocephalic, atraumatic Eyes: normal inspection, constricted pupils, EOMI ENT: hearing grossly normal, pharynx normal (dry mucous membranes) Neck: supple, no JVD, no adenopathy Respiratory/Chest: lungs clear to auscultation. No wheezes, rales or rhonci. No respiratory distress or accessory muscle use Cardiovascular: regular rate, rhythm, no murmur, normal peripheral pulses Abdomen/GI: difficult to examine due to patient moving around. Mildly distended, diffusely tender to palpation, no guarding Extremities/Musculoskelatal: normal inspection, no calf tenderness, normal capillary refill, no pedal edema Neurologic/Psych: alert, anxious mood, oriented x 3 Skin: normal color, warm/dry Principal Diagnosis cecal bascule/volvulous/sbo:::Status post right open extended hemicolectomy involving terminal ileum, right colon and portion of transverse colon Discharge Exam Constitutional + ill appearing and + cachectic; + not well nourished Eyes PERRL, conjunctivae normal, anicteric sclerae ENMT external ear and nose normal, oropharynx normal Mouth: + poor dentition and + small oral opening Mallampati Class: III Neck trachea midline, no thyromegaly normal visual inspection Respiratory + respiratory distress (Minimal shortness of breath at rest) Auscultation: + diminished lung sounds Cardiovascular Rate/Rhythm: regular rate and regular rhythm Heart Sounds: no murmur Gastrointestinal (Abdomen) Inspection/Auscultation: + abdomen distended and normal bowel sounds (Sluggish) Percussion/Palpation: + abdomen tender (All over but mostly right lower quadrant), + guarding and + abdomen rigid Musculoskeletal no cyanosis or clubbing, extremities motor strength 5/5 Skin no rashes, warm and dry Neurologic moves all extremities Psychiatric A+Ox3, euthymic affect Affect: + anxious affect Lymphatic no cervical or axillary lymphadenopathy Discharge Data Allergies Allergy/AdvReac Type Severity Reaction Status Date / Time No Known Allergies Allergy Verified 03/21/19 16:23 Consultations 03/21/19 17:37 ED Decision to Admit Stat 03/21/19 19:28 Consult General Surgery Routine 03/26/19 09:03 Consult Anesthesiology Routine Procedures Performed Operation Date: 03/22/19 13:20 Actual Procedures p Right Open Extended Hemicolectomy(Right) - Nick Alaniz, DO Ordered Studies 03/21/19 15:11 CT abd pelvis wo con Stat 03/22/19 14:22 US - OR guided needle placemen Routine 03/26/19 11:43 US - OR guided needle placemen Routine Hospital Course (1) Cecal bascule: Causing intestinal obstruction Possibly ischemic Appreciate surgery input and recommendation He went for exploratory laparotomy this afternoon Status post right open extended hemicolectomy involving terminal ileum, right colon and portion of transverse colon POD #3 Management as per surgery We will continue Dilaudid 1 mg intravenously daily 1 hour as per surgery and discontinue morphine Remains stable clinically Continue to have NG suction Bowel sounds diminished but the patient is passing gas NG tube has been discontinued He has been tolerating clears orally Bowel is moving which is liquid Electrolyte imbalance We will supplement intravenously We will give potassium supplement (2) SBO (small bowel obstruction): This is a 38 yo M with H heroin abuse and depression who presents with progressive diffuse abdominal pain that began 1 week ago and was found to have small bowel obstruction and possible cecal volvulus/bascule. -Worsening abdominal pain x 1 week -CT abd/pelvis with progressively dilated small bowel loops with multiple air-f luid levels. The transverse and left colon are decompressed. The cecum appears to be positioned within the midline. The findings are consistent with a small bowel obstruction, possibly on the basis of a cecal volvulus/bascule -Evaluated by Dr. Sawant of general surgery-no immediate plan for surgery was contemplated on admission -Started on conservative management with NG tube, IV fluids, pain control, trend WBC and lactate -Condition deteriorated with increasing abdominal distention and increasing tenderness and guarding the right lower quadrant -Underwent right open extended hemicolectomy by Dr. lAaniz on 03/22 -Continue NG suction for now and give him n.p.o. -Ice chips to keep mouth moist -Likely DC NG tube tomorrow and to start clears orally at the end of the day -As above (3) Heroin abuse: Last used this morning -Clonidine PRN, Ativan PRN -Patient is very lethargic and did not show any evidence of withdrawal symptoms -Will try to reduce the use of narcotics and anxiolytics Has been having symptoms predominantly related to withdrawal Requiring recurrent intravenous Dilaudid to control pain Appreciate pain therapy input and recommendation Status post abdominal nerve block to control abdominal pain DVT Ppx: Tristen talbert, ambulation Code status: FULL PCP: Unassigned Dispo: Admitted to PCU. Plan to return home once medically stable. Total Time Total Time Spent Total Time Spent (In Minutes): 20 minutes Total Time Includes: Other (The patient was discharged by the surgical team and was not seen by me on the day of discharge.) Discharge Plan Discharge Items Patient Disposition: Home - Self-Care Reason For Visit: SBO Discharge Diagnosis: cecal bascule/volvulous/sbo Condition: Fair Discharge Goals: Therapeutic intervention Activity: As commented below Lifting: No more than 10 pounds Non-emergency contact: Surgeon Call non-emergency contact if: your temperature is above 101, your wound has increased redness and your wound has increased drainage Follow-up/Referrals: Nick Alaniz, DO [Surgeon] - PCP,NO [Primary Care Provider] - Diet: Low Fiber Addtl Provider Instructions: call [phone] to schedule a follow up appnt with Dr. Alaniz in 1-2 weeks or with any concerns. Clinics offering suboxone treatment: [facility] [address] [place] [address] [facility] [address] [place] [address] [facility] [address] [place] [address], [place] [phone] Dr. Regalado [facility] [address] [phone] [facility], [place] [phone] Prescriptions: New hydrocodone-acetaminophen [Blue] 5-325 mg tablet 1 - 2 tab PO Q8H PRN (Reason: pain) Qty: 40 RF: 0 No Action No Known Home Medications RF: 0 Stand-Alone Forms: [employer], [facility]/Other Patient Handouts: Eat Healthy, Addiction Heroin Tx Discharge Orders: Discharge Order (Routine); Ordered 03/27/19 Ordered By: Nick Alaniz Admission Data Admit Date/Time: 03/21/19 18:12 Attending Provider: Carly Lazcano Admit Provider: Celestine Cuba Primary Care Provider: PCP,NO Other Providers: Celestine Cuba ; Dave Sawant ; Haris Raymundo Service: Surgical Services Other Interventions: Discharge Summary Assessment (RN) Last Done: 03/27/19 10:57 DC Date/Time DO NOT enter until pt leaves facility: 03/27/19 12:20
== END 2019-03-27 12:20 | disposition home or self-care (01) | DRG 331 ==
LOC: ED 15:03 → 2S 18:12 → 3E 03-24 10:54